=== PATIENT | female | born 1990 | race Caucasian/White ===

== ENCOUNTER → 2020-09-04 06:31 | Outpatient (CLI) | payer BC, SELFPAY ==
[2020-09-04 18:42] LABS: SARS-CoV-2 RNA PCR Negative
== END ==
PROVIDERS: PCP Family Medicine; Visit Provider Family Medicine
DX: Z20.822 Contact with and (suspected) exposure to COVID-19 (principal); J06.9 Acute upper respiratory infection, unspecified
CPT/HCPCS: C9803; U0003; U0005

== ENCOUNTER 2021-07-15 06:52 | Inpatient (IN) | payer OTHER, SELFPAY ==
[2021-07-15] VITALS (214 sets, daily range): BP systolic 80–147; BP diastolic 35–101; PULSE 62–157; TEMP 36.6–37.9; O2SAT 97–100; BMI 41.2
--- OUTSIDE RECORDS SUMMARY | 2021-07-15 07:18 | XMS_ITS | Encounter Summary ---
:1990 Author Care Team Providers Name Role Phone Anders Edwards MD Primary Care Provider [phone] Reason for Visit OB visit Assessment and Plan Assessment Note Patient is ___weeks . Discu ssed plan. 1. Body mass index 40+ - severel y obese 2. Routine care Discussion Note: None recorded.Patient educational handouts: No information available. Plan of Care Reminders Provider Appointments Induction Fabiola T herese 07/19/2021 MD Louise 12:00AM ? Nst Nst, , EQUI P 07/20/2021 10:00AM ? U/S OB BPP Ultras ound Two, 07/20/2021 TECH 9:00AM ? Ob Routine Fabiola Th erese 07/20/2021 MD Louise 9:30AM Lab None ? ? recorded. Referral None ? ? recorded. Procedures None ? ? recorded. Surgeries None ? ? recorded. Imaging None ? ? recorded. Medications Name Start Date ? ? ?
--- OUTSIDE RECORDS SUMMARY | 2021-07-15 07:18 | XMS_ITS | Encounter Summary ---
:1990 Author Care Team Providers Name Role Phone Anders Edwards MD Primary Care Provider [phone] Reason for Visit NST 37.4 Assessment and Plan 1. Maternal obesity complicating , childbirth and the puerperium, antepartum ? non-stress test Discussion Note: None recorded.Patient educational handouts: No [...] recorded. Surgeries None ? ? recorded. Imaging Non-stress [place] Test 07/06/2021 Medications Name Start Date ? ? ?
--- OUTSIDE RECORDS SUMMARY | 2021-07-15 07:18 | XMS_ITS | Encounter Summary ---
:1990 Author Care Team Providers Name Role Phone Anders Edwards MD Primary Care Provider [phone] Reason for Visit OB visit 32w3d Assessment and Plan Assessment Note Patient is ___weeks . Discu ssed plan. Discussion Note: None recorded.Patient educational handouts: No [...] Medications Name Start Date ? ? ? Vitamin B-6 ? Medications Administered None recorded. Vitals
--- OUTSIDE RECORDS SUMMARY | 2021-07-15 07:18 | XMS_ITS | Encounter Summary ---
:1990 Author Care Team Providers Name Role Phone Anders Edwards MD Primary Care Provider [phone] Reason for Visit OB visit Assessment and Plan 1. Maternal obesity complicating , childbirth and the puerperium, antepartum 2. Dilatation of renal pel vis 3. Routine care Discussion Note: None recorded.Patient educational [...]
--- OUTSIDE RECORDS SUMMARY | 2021-07-15 07:18 | XMS_ITS | Encounter Summary ---
:1990 Author Care Team Providers Name Role Phone Anders Edwards MD Primary Care Provider [phone] Reason for Visit None recorded. Assessment and Plan 1. Maternal obesity complicating , childbirth and the puerperium, antepartum ? US, obstetric, biophysical profile + non-stress test Discussion Note: None recorded.Patient educational handouts: No information available. Plan of Care Reminders Provider Appointments Induction Fabiola T herese 07/19/2021 MD Louise 12:00AM ? Nst Nst, , EQUI P 07/20/2021 10:00AM ? U/S OB BPP Ultras ound Two, 07/20/2021 TECH 9:00AM ? Ob Routine Fabiola Th erese 07/20/2021 MD Louise 9:30AM Lab None recorded. ? ? Referral None recorded. ? ? Procedures None recorded. ? ? Surgeries None recorded. ? ? Imaging US, Obstetric, Clarissa burgess Biophysical Profile + 07/13/2021 Non-stress Test Medications Name Start Date ? ?
--- OUTSIDE RECORDS SUMMARY | 2021-07-15 07:18 | XMS_ITS | Encounter Summary ---
:1990 Author Care Team Providers Name Role Phone Anders Edwards MD Primary Care Provider [phone] Reason for Visit None recorded. Assessment and Plan 1. condition affecting obs tetrical care of mother ? US, obstetric, follow-up Discussion Note: None recorded.Patient educational handouts: No [...] recorded. Surgeries None ? ? recorded. Imaging , [place] [facility], Follow-up 05/05/2021 Medications Name Start Date ? ? ? Vitamin B-6 ? Medications Administ
--- OUTSIDE RECORDS SUMMARY | 2021-07-15 07:18 | XMS_ITS | Encounter Summary ---
:1990 Author Care Team Providers Name Role Phone Anders Edwards MD Primary Care Provider [phone] Reason for Visit NST [id number] EDC 07/23/2021 LMP 10/15/2020 Assessment and Plan 1. Maternal obesity complicating [...] ? recorded. Imaging Non-stress [place] Test 06/29/2021 Medications Name Start Date ? ?
--- OUTSIDE RECORDS SUMMARY | 2021-07-15 07:18 | XMS_ITS | Encounter Summary ---
:1990 Author Care Team Providers Name Role Phone Anders Edwards MD Primary Care Provider [phone] Reason for Visit OB visit Assessment and Plan 1. Maternal obesity complicating , childbirth and the puerperium, antepartum 2. Routine care Discussion Note: None recorded.Patient [...] ? Vitamin B-6 ? Medications Administered None re
--- OUTSIDE RECORDS SUMMARY | 2021-07-15 07:18 | XMS_ITS | Encounter Summary ---
:1990 Author Care Team Providers Name Role Phone Anders Edwards MD Primary Care Provider [phone] Reason for Visit OB visit Assessment and Plan 1. Maternal obesity complicating , childbirth and the puerperium, antepartum 2. Disorder of abdominal r egion AC 96% 3. Body mass index 40+ - severel y obese Discussion Note: None recorded.Patient educational handouts: No [...]
--- OUTSIDE RECORDS SUMMARY | 2021-07-15 07:18 | XMS_ITS | Encounter Summary ---
:1990 Author Care Team Providers Name Role Phone Anders Edwards MD Primary Care Provider [phone] Reason for Visit OB visit Assessment and Plan 1. Dilatation of renal pel vis 2. Maternal obesity complicating , childbirth and the puerperium, antepartum Discussion Note: None recorded.Patient educational handouts: No [...]
--- OUTSIDE RECORDS SUMMARY | 2021-07-15 07:18 | XMS_ITS | Encounter Summary ---
:1990 Author Care Team Providers Name Role Phone Anders Edwards MD Primary Care Provider [phone] Reason for Visit None recorded. Assessment and [...] Surgeries None ? ? recorded. Imaging , [place] [facility], Follow-up 05/31/2021 Medications Name Start Date ? ? ? Vitamin B-6 ? Medications Adminis
--- OUTSIDE RECORDS SUMMARY | 2021-07-15 07:18 | XMS_ITS | Encounter Summary ---
:1990 Author Care Team Providers Name Role Phone Anders Edwards MD Primary Care Provider [phone] Reason for Visit None recorded. Assessment and [...] US, Obstetric, Clarissa burgess Biophysical Profile + 06/29/2021 Non-stress Test Medications Name Start Date ? ?
--- OUTSIDE RECORDS SUMMARY | 2021-07-15 07:18 | XMS_ITS | Encounter Summary ---
:1990 Author Care Team Providers Name Role Phone Anders Edwards MD Primary Care Provider [phone] Reason for Visit None recorded. Assessment and Plan 1. Large for gestation age fetus ? US, obstetric, follow-up ? US, obstetric, biophysical profile + non-stress [...] ? ? Imaging US, Obstetric, Clarissa burgess Follow-up 07/06/2021 ? US, Obstetric, Clarissa burgess Biophysical Profile + 07/06/2021
--- OUTSIDE RECORDS SUMMARY | 2021-07-15 07:18 | XMS_ITS | Encounter Summary ---
:1990 Author Care Team Providers Name Role Phone Anders Edwards MD Primary Care Provider [phone] Reason for Visit OB visit Assessment and Plan 1. Maternal obesity complicating , childbirth and the puerperium, antepartum ? HbA1c (hemoglobin A1c), bl ood ? CMP, serum or plasma 2. Disorder of abdominal r egion AC 96% Discussion Note: None recorded.Patient educational handouts: No information available. Plan of Care Reminders Provider Appointments Induction Fabiola T herese 07/19/2021 MD Louise 12:00AM ? Nst Nst, , EQUI P 07/20/2021 10:00AM ? U/S OB BPP Ultras ound Two, 07/20/2021 TECH 9:00AM ? Ob Routine Fabiola Th erese 07/20/2021 MD Louise 9:30AM Lab HbA1C [facility] (Hemoglobin a1C), Blood 06/29/2021 Hospital (Lab) ? CMP, Serum or Lexa tral Tripp Plasma 06/29/2021 Hospital (Lab) Referral None ? ? recorded. Procedures None ? ? recorded. Guzman
--- OUTSIDE RECORDS SUMMARY | 2021-07-15 07:18 | XMS_ITS ---
:1990 Author Care Team Providers Name Role Phone EDY BAJWA MD Primary Care Provider [phone] Allergies Code Code System Name Reaction Severity Status Onset NKDA ? Medications Name Status Start Date Stop Date ? ? amoxicillin 875 mg-potassium clavulanate 125 mg tablet Completed ? 12/14/2020 TAKE 1 TABLET BY MOUTH TWICE DAILY diclofenac 0.1 % eye drops Completed 01/22/201912/14 instill 1 drop by ophthalmic route 4 ti mes every day into affected eye(s) beginning within 15 minutes after surgery ID NOW COVID-19 Test Kit Completed ? USE DIRECTED loratadine 10 mg tablet Completed ? 12/15/19 TAKE 1 TABLET BY MOUTH DAILY metoclopramide 5 mg tablet Completed ? 04/06 TAKE 1 TABLET BY MOUTH FOUR TIMES DAILY DIRECTED Active ? Not available Unisom (diphenhydramine) Completed ? Vitamin B-6 Active ? Not available Problems Name Status Onset Date Source ? SNOMED CT Concept Unknown 01/17/[address] Concept Unknown 01/17/2019 History Body Mass Index 40+ - Severely Obese Active 12/14/2020 ? Active 01/11/2021 ? Maternal Obesity Complicating Active 04/06/2021 ? , Childbirth and the Puerperium, Antepartum Disorder of Abdominal Region Active 06/29/2021 ? Dilatation of Renal Pelvis Active ? ? Procedures Date Name Performed by ?
--- OUTSIDE RECORDS SUMMARY | 2021-07-15 07:18 | XMS_ITS | Encounter Summary ---
:1990 Author Care Team Providers Name Role Phone Anders Edwards MD Primary Care Provider [phone] Reason for Visit None recorded. Assessment and [...] ? recorded. Imaging Non-stress [place] Test 07/13/2021 Medications Name Start Date ? ? ?
--- NOTE | 2021-07-15 08:05 | LDADM ---
This patient, Rosa Dubois, was admitted to Labor/Delivery/Recovery 102 on 07/15/21 at 06:52. Plans for labor, pain management and were discussed with patient. Patient/family oriented to hospital policies and general routines including ID bracelet, bed and alarms, visiting hours, pain management, procedures, bathroom and other care routines, personal items, smoking policy, room service/diet and guest tray routines, infant security routines, and visiting hours. Patient/Family are encouraged to report perceived risks to care and to ask questions if they do not understand what they are told or what they should do. See OBIX for further documentation.
[2021-07-15 08:29] LABS: Basophils Absolute Auto 0.1 K/mm3 (0.0-0.1); Basophils Percent Auto 0.5 % (0.2-1.2); Eosinophils Absolute Auto 0.1 K/mm3 (0-0.3); Hematocrit 35.5 % (37.0-47.0); Immature Granulocyte Absolute 0.29 K/mm3 (0.00-0.031); Immature Granulocyte Percent A 2.6 % (0-0.5); Lymphocytes Absolute Auto 2.15 K/mm3 (0.9-3.2); Lymphocytes Percent Auto 19.4 % (18.3-44.2); Mean Corpuscular HGB Conc 33.8 g/dl (32-36); Mean Corpuscular Hemoglobin 31.8 pg (26-34); Mean Corpuscular Volume 94.2 fl (80-100); Mean Platelet Volume 11.6 fl (7.4-10.4); Monocytes Absolute Auto 0.6 K/mm3 (0.1-0.6); Monocytes Percent Auto 5.4 % (2.6-8.5); Neutrophils Absolute Auto 7.9 K/mm3 (1.3-6.7); Neutrophils Percent Auto 71.1 % (45.5-73.1); Platelet Count Result 239 k/mm3 (150-375); Red Blood Count 3.77 M/mm3 (4.2-5.4); Red Cell Distribution Width 13.6 % (11.5-14.5); White Blood Count 11.1 K/mm3 (4.5-10.0)
[2021-07-15] MEDS: LACTATED RINGERS 1,000 ML 125 ML IV CONT ×4 (08:30→21:48)
[2021-07-15] MEDS: OXYTOCIN 30 UNITS/NS 500 ML 30 UNITS/500 ML BAG 4 UNITS IV CONT (08:31)
--- NOTE | 2021-07-15 08:54 | P.HPUP_ITS ---
History and Physical Update Update Date/Time: 07/15/21 08:54 31-year-old prime at term who presents for spontan eous rupture membranes. Confirmation rupture membranes with arom produced clear fluid. 4-5 cm, 90%, 0 station. Reassuring status. History and Physical has been reviewed, including an updated exam of the patient. There are NO changes in the patient's condition. Risks, benefits, and alternatives have been discussed and questions answered. Patient agrees to proceed with procedure.
[2021-07-15] MEDS: fentaNYL CITRATE INJ (*CRX) 100 MCG/2 ML VIAL IV PUSH ×2 (10:26→11:55)
--- NOTE | 2021-07-15 12:28 | WPDANESEPP ---
Anes - Eval Pre Procedure Procedure: Labor epidural Date/Time: 07/15/21 12:28 Surgeon: Louise Preop Diagnosis: Labor Pain Pre Op Diagnosis: Labor Patient Data Age: 31 Gender: F Height: 1.7 m Weight: 119.5 kg Last Vital Signs Temp 37.1 C 07/15/21 11:30 Pulse 78 07/15/21 12:25 BP 124/65 07/15/21 12:28 Pulse Ox 97 07/15/21 12:28 Allergies Allergy/AdvReac Type Severity Reaction Status Date / Time No Known Allergies Allergy Verified 09/02/20 09:03 Home Medications Medication Instructions Recorded Confirmed Type PNV cmb#95-ferrous fumarate-FA 1 tablet PO DAILY 07/03/21 07/03/21 History [] cholecalciferol (vitamin D3) 50 mcg PO DAILY 07/15/21 07/15/21 History [Vitamin D3] Laboratory Tests 07/15/21 07/15/21 07/15/21 08:06 08:06 08:06 WBC 11.1 K/mm3 H K/mm3 (4.5-10.0) RBC 3.77 M/mm3 L M/mm3 (4.2-5.4) Hgb 12.0 g/dL g/dL (12.0-15.0) Hct 35.5 % L % (37.0-47.0) MCV 94.2 fl fl (80-100) MCH 31.8 pg pg (26-34) MCHC 33.8 g/dl g/dl (32-36) RDW 13.6 % % (11.5-14.5) Plt Count 239 k/mm3 k/mm3 (150-375) MPV 11.6 fl H fl (7.4-10.4) Immature Gran % (Auto) 2.6 % H % (0-0.5) Neut % (Auto) 71.1 % % (45.5-73.1) Lymph % (Auto) 19.4 % % (18.3-44.2) Ida % (Auto) 5.4 % % (2.6-8.5) Eos % (Auto) 1.0 % % (0-4.4) Baso % (Auto) 0.5 % % (0.2-1.2) Lymph # (Auto) 2.15 K/mm3 K/mm3 (0.9-3.2) Ida # (Auto) 0.6 K/mm3 K/mm3 (0.1-0.6) Eos # (Auto) 0.1 K/mm3 K/mm3 (0-0.3) Baso # (Auto) 0.1 K/mm3 K/mm3 (0.0-0.1) Abs Immat Gran (auto) 0.29 K/mm3 H K/mm3 (0.00-0.031) Absolute Neuts (auto) 7.9 K/mm3 H K/mm3 (1.3-6.7) Absolute Nucleated RBC 0.0 K/mm3 K/mm3 (0.0-0.012) Nucleated RBC % 0.0 % % (0.0-0.2) RPR Pending Blood Type B Positive Antibody Screen Negative : gestational age (JANEY 07/22/21) Patient hx anesthesia problems: none Family hx anesthesia problems: none Results Review: All pre-operative results and documents have been reviewed as part of the pre-operative evaluation. [facility] Past Medical History Medical History Plantar fasciitis, bilateral 2013 Surgical History Surgical History History of foot surgery planter 2014 [place] teeth extracted 2012 & 2014 Family History Family History Father Hypertension Mother Hypertension Grandparent Hypertension Diabetes mellitus Father Hypertension Mother Hypertension Social History Social History Smoking packs per day: 0.5 Smoking cigarettes per day: 10.0 Years smoked: 14 Smoking pack-years: 7.00 Smoking status: Former smoker Tobacco type: cigarettes Second hand tobacco smoke exposure: Yes Alcohol intake: current Alcohol use details: 1 beer consumed every other week Substance use: never Substance use type: does not use Gender identity (if verbalized by the patient): Female Spiritual care concerns: No Exam Day of Procedure 07/15/21 12:28 Patient weight: obese Heart: regular rate and rhythm Lungs: normal air movement Airway: Mallampati scale class II Neurological: alert and oriented
--- NOTE | 2021-07-15 17:42 | PM.OBPNVD ---
OB - PN: Subj Subjective Date/time seen: 07/15/21 17:42 Current with reassuring heart tones, cervix is 5 and half. Patient is comfortable with epidural. No evidence of chorio, or distress. OB - PN: Obj Data Labs CBC & Chem 7: 07/15/21 08:06 Labs: Laboratory Results - last 24 hr 07/15/21 07/15/21 08:06 08:06 WBC 11.1 H RBC 3.77 L Hgb 12.0 Hct 35.5 L MCV 94.2 MCH 31.8 MCHC 33.8 RDW 13.6 Plt Count 239 MPV 11.6 H Immature Gran % (Auto) 2.6 H Neut % (Auto) 71.1 Lymph % (Auto) 19.4 [place] % (Auto) 5.4 Eos % (Auto) 1.0 Baso % (Auto) 0.5 Lymph # (Auto) 2.15 [place] # (Auto) 0.6 Eos # (Auto) 0.1 Baso # (Auto) 0.1 Abs Immat Gran (auto) 0.29 H Absolute Neuts (auto) 7.9 H Absolute Nucleated RBC 0.0 Nucleated RBC % 0.0 Blood Type B Positive Antibody Screen Negative OB - PN A/P Time Spent With Patient Time: Total time spent is greater than 50% in coordination of care (as documented) at patient's floor/unit and/or counseling patient:
[2021-07-15] MEDS: ONDANSETRON INJ 4 MG/2 ML VIAL IV PUSH (19:42)
[2021-07-15] MEDS: AMPICILLIN 2 GM/NS 100 ML 2 GM/100 ML BAG IVPB (21:48)
[2021-07-16] VITALS (191 sets, daily range): BP systolic 90–160; BP diastolic 33–113; PULSE 50–160; RESP 16–18; TEMP 36.5–38.1; O2SAT 85–100
[2021-07-16] MEDS: AMPICILLIN 1 GM/NS 50 ML 1 GM/50 ML BAG IVPB ×2 (02:00→06:07)
[2021-07-16] MEDS: LACTATED RINGERS 1,000 ML 125 ML IV CONT (06:08)
[2021-07-16] MEDS: SODIUM CHLORIDE 0.9% IV 100 ML 30 ML (07:20)
[2021-07-16] MEDS: GENTAMICIN 80MG/SOD CHL 50 ML 80 MG/50 ML BAG 100 MG IVPB (07:20)
--- NOTE | 2021-07-16 07:39 | PM.OBPNLAB ---
Pain Control Date/time seen: 07/16/21 07:39 Pain control: epidural Pelvic Exam Dilation (cm): 9 Effacement (%): 90 station: -1 Amniotic membrane status: Ruptured Comments: 9.5cm, anterior lip reduces easily but returns Contractions Contraction intensity: Strong/Firm Status status: Category l Assessment and Plan Pitocin rate (mU/min): 20 Assessment: active labor Comments: Pushed with pt for a few contractions. Great effort, baby -1 station. Anterior lip reduces easily but returns. Will try pushing for a bit. If cervix becomes edematous, will stop. Discussed POC with pt, RN. Amp and gent for fever, prolonged ROM. Baby FHT category 1.
[2021-07-16] MEDS: OXYTOCIN 30 UNITS/NS 500 ML 30 UNITS/500 ML BAG 22 UNITS IV CONT (09:13)
[2021-07-16 09:17] LABS: Estimated CRCL calculation 185 ml/min; Estimated Glomerular Filt Rate > 60
--- NOTE | 2021-07-16 10:37 | P.PCNOB_ITS ---
OB - Delivery Note Procedure Delivery date: 07/16/21 Procedure: Intrapartal Events: Chorioamnionitis Delivery augmentation: Pitocin Delivery monitor: External FHT and Internal Uterine Route of delivery: Episiotomy description: Right Mediolateral Delivery repair: vicryl Quantitative Blood Loss (ml): 285 Anesthesia type: Epidural Disposition: Floor Narrative: FHT dropped to the 50s for one minute, so RML episiotomy was cut. With adequate expulsive efforts by the mother, the baby's head was delivered OA. A mild shoulder dystocia was encountered and relieved with McRobert's and suprapubic pressure. The baby's anterior shoulder was delivered under the pubic symphysis. The posterior shoulder and the rest of the baby delivered without difficulty. The infant was placed on the mothers chest and suctioned and st imulated. The cord was clamped and cut after 30 seconds. Mother and baby both stable. [place] Baby Date of : 07/16/21 Time of : 10:12 Weeks of gestation at delivery: 38 Infant gender: Male Weight (pounds): 7 Weight (ounces): 15 presentation: vertex position: Right Occiput Anterior Placenta delivery description: Spontaneous Cord Vessel Description: 3 Vessels and Clamped/Cut score one minute: 8 score five minutes: 9
[2021-07-16] MEDS: OXYTOCIN 30 UNITS/NS 500 ML 30 UNITS/500 ML BAG 125 UNITS IV CONT (11:00)
[2021-07-16 11:29] LABS: Rapid Plasma Reagin Non-Reactive (NonReactive)
[2021-07-16] MEDS: IBUPROFEN 600 MG TABLET PO ×2 (12:45→18:46)
[2021-07-16] MEDS: WITCH HAZEL 40 PADS 1 PAD TOPICAL (12:45)
[2021-07-16] MEDS: BENZOCAINE 20% AER SPR (*SP) 56 GM CAN 1 SPRAY TOPICAL (12:45)
--- NOTE | 2021-07-16 13:05 | PC.NURSE ---
Patient transferred to post room #277 per wheelchair from labor and delivery. Support person present. Oriented to unit, room, information board, rooming in, admission packet and security measures. Patient verbalizes understanding.
[2021-07-16] MEDS: ACETAMINOPHEN 325 MG TABLET 650 MG PO (21:03)
[2021-07-17] VITALS: BP 119/61; PULSE 84; RESP 16; TEMP 36.7; O2SAT 97
[2021-07-17] MEDS: IBUPROFEN 600 MG TABLET PO ×2 (00:33→09:09)
[2021-07-17 04:00] VITALS: BP 121/73; PULSE 68; RESP 14; TEMP 36.5; O2SAT 96
[2021-07-17 05:07] LABS: Hematocrit 30.6 % (37.0-47.0); Hemoglobin 9.8 g/dL (12.0-15.0)
--- NOTE | 2021-07-17 06:55 | PM.OBPNVD ---
OB - PN: Subj Subjective Date/time seen: 07/17/21 06:55 Patient comments: no complaints baby status: doing well OB - PN: Obj Data Labs CBC & Chem 7: 07/17/21 04:15 07/15/21 08:05 Labs: Laboratory Results - last 24 hr 07/15/21 07/15/21 07/17/21 08:05 08:06 04:15 Hgb 9.8 L Hct 30.6 L Creatinine 0.50 L Estim Creat Clear Calc 185 Estimated GFR > 60 RPR Non-reactive OB - PN A/P Plan day: 1 Plan: routine care Time Spent With Patient Time: Total time spent is greater than 50% in coordination of care (as documented) at patient's floor/unit and/or counseling patient: Review of Systems Review of Systems: All systems reviewed & are unremarkable except as noted in HPI and below Exam Const: General: cooperative, healthy appearing and comfortable
--- NOTE | 2021-07-17 07:00 | PC.NURSE ---
PT introductions made and plan of care discussed per post , pain management, breast feeding, daily care activities. PT verbalized understanding of such care. PT and spouse both recipients of instructions and no barriers to learning identified at this time. PT received instructions per one to one discussion, mom baby care guide and demonstrations this shift.
[2021-07-17] MEDS: BENZOCAINE 20% AER SPR (*SP) 56 GM CAN 1 SPRAY TOPICAL (09:08)
[2021-07-17] MEDS: WITCH HAZEL 40 PADS 1 PAD TOPICAL (09:08)
[2021-07-17] MEDS: ACETAMINOPHEN 325 MG TABLET 650 MG PO (09:10)
[2021-07-17] MEDS: DOCUSATE SODIUM 100 MG CAPSULE PO ×2 (09:11→18:00)
[2021-07-17] MEDS: POLYSACCHARIDE IRON COMPLEX 150 MG CAPSULE PO ×2 (09:11→18:00)
[2021-07-17 09:15] VITALS: BP 124/70; PULSE 78; RESP 18; TEMP 36.3; O2SAT 99
--- NOTE | 2021-07-17 12:34 | WPDANLDPN2 ---
Anes-Prog Note L&D Date/Time: 07/17/21 12:34 Comfortable throughout: labor and delivery Neuraxial method: epidural Epidural/Spinal procedure site: clean & non-tender Neuro status: Neuro function grossly intact. Cardiovascular status: normal Respiratory status: normal Airway patency: baseline Mental status: baseline Post-Op hydration status: normal Vital Signs: Last Vital Signs Temp 36.3 C L 07/17/21 09:15 Pulse 78 07/17/21 09:15 Resp 18 07/17/21 09:15 BP 124/70 07/17/21 09:15 Pulse Ox 99 07/17/21 09:15 Pain score (VAS): 05/10 I/O: Intake & Output 07/16/21 07/17/21 07/17/21 23:59 07:59 15:59 Intake Total 500 240 Balance 500 240 Post-procedural complaints: none Patient feedback: Patient satisfied with anesthetic care.
[2021-07-17 21:20] VITALS: BP 130/75; PULSE 68; RESP 16; TEMP 37.2; O2SAT 98
--- NOTE | 2021-07-18 00:30 | PC.NURSE ---
Patient viewed the discharge video Mother & Baby Care, The First Two Weeks . Patient was given the opportunity and encouraged to ask questions. Patient verbalized understanding of information shared and has been given the mother/baby guide for home reference.
--- NOTE | 2021-07-18 08:00 | PC.NURSE ---
PT introductions made and plan of care discussed per post , pain management, breast feeding, daily care activities and pending discharge to home. PT verbalized understanding of such care. PT and spouse both recipients of instructions and no barriers to learning identified at this time. PT received instructions per one to one discussion, mom baby care guide and demonstrations this shift.
--- NOTE | 2021-07-18 08:36 | PM.OBPNVD ---
OB - PN: Subj Subjective Date/time seen: 07/18/21 08:36 Patient comments: no complaints baby status: doing well OB - PN: Obj Data Labs CBC & Chem 7: 07/17/21 04:15 07/15/21 08:05 OB - PN A/P Plan day: 2 Plan: routine care and discharge home Time Spent With Patient Time: Total time spent is greater than 50% in coordination of care (as documented) at patient's floor/unit and/or counseling patient: Review of Systems Review of Systems: All systems reviewed & are unremarkable except as noted in HPI and below Exam Const: General: cooperative, healthy appearing and comfortable
--- NOTE | 2021-07-18 08:37 | PM.OBDSVD ---
DS: Admitting Diagnosis Discharge Date 07/18/21 Admitting Diagnosis IOL OB - DS: Summary OB Procedures : None OB Procedures Intrapartum: Spontaneous Vag Delivery OB Procedures: : None Time Spent with Patient Time attestation: Total time spent providing and/or coordinating discharge services: DS: Data Data Completed and Pending Labs on day of discharge: Preliminary micro results at discharge 07/16/21 13:48 Anaerobic Culture - Preliminary Placenta 07/16/21 13:48 Anaerobic Culture - Preliminary Placenta Maternal Discharge Plan Discharge Attending physician on discharge: Nakul Conti Discharging Clinician: Carol Staley Patient Disposition: Home, Self-Care Activity: pelvic rest Diet: regular Discharge Instructions: Education: Mom and Baby Guide Given to: Mother Follow-Up: Call your delivering provider's office for an appointment to be seen in: 4 Weeks Mom and baby should come to the [facility] for the follow-up appointment. Appointment Date/Time: July 20, 2021 at 9:00 am What to expect at your follow-up visit: Blood Pressure Check Call [phone] if you are unable to keep your appointment time. BREAST CARE: * Wear a snug supportive bra. * For engorgement discomfort: Breast Feeding: * Apply warm moist washcloths * Express milk as needed to relieve engorgement * Wear loose clothing Bottle Feeding: * May apply ice packs * For sore nipples: * Identify correct latch-on * Apply warm moist washcloths before and after nursing * Air dry nipples after nursing * May apply Lansinoh cream to nipples PERINEAL CARE: * Until bleeding stops, use your justin bottle after urinating * Change your pad frequently throughout the day * You may take sitz baths several times a day (fill your bathtub with warm water and soak for 20 minutes.) Do NOT bathe in the water * No tub baths until seen by your physician - You may shower ACTIVITY: * Rest as much as possible. * Do not exercise or lift anything heavier than your baby (such as laundry or other children.) * Avoid stairs or driving as much as possible. * Do not put anything into the vagina. No douching, tampons, or sexual activity until seen by physician. NOTIFY PHYSICIAN IF YOU HAVE ANY QUESTIONS OR IF ANY OF THE FOLLOWING SYMPTOMS OCCUR: * If your perineum becomes red, swollen, or more painful than what you have experienced in the hospital. * If your vaginal bleeding becomes foul smelling. * If your vaginal bleeding becomes more heavy than a period or if your bleeding changes from pink to bright red. However, you may pass an occasional walnut-sized clot once or twice for the first week . * If you experience a sharp, shooting pain in you calves. * If you discover a hard, reddened area on your breast or if you experience flu-like symptoms. * If you have a fever of 100.4 or greater DIET: * Eat regular, well-balanced meals. * Drink plenty of fluids daily. If , drink to thirst. Patient Instructions: Antibiotic Form Stand Alone Forms: General Discharge Information Follow-up/Referrals: Fabiola Gil MD [Physician] - 4 Weeks Discharge Medications: Continued PNV cmb#95-ferrous fumarate-FA [] 28 mg iron- 800 mcg Tablet 1 tablet PO DAILY RF: 0 cholecalciferol (vitamin D3) [Vitamin D3] 50 mcg (2,000 unit) Tablet 50 mcg PO DAILY RF: 0 Date of admission: 07/15/21 06:52 Primary Care Provider: Rosy Edwards Admitting Provider: Fabiola Gil Attending physician on admission: Fabiola Gil Condition: Stable
[2021-07-18 09:00] VITALS: BP 124/76; PULSE 72; RESP 18; TEMP 36.8; O2SAT 100
[2021-07-18] MEDS: POLYSACCHARIDE IRON COMPLEX 150 MG CAPSULE PO (09:00)
[2021-07-18] MEDS: DOCUSATE SODIUM 100 MG CAPSULE PO (09:00)
--- NOTE | 2021-07-18 10:00 | PC.NURSE ---
PT received discharge instructions per protocol and verbalized understanding of such care.
--- NOTE | 2021-07-18 10:25 | PC.NURSE ---
PT discharged to home ambulatory accompanied by spouse and and taken to waiting car. follow up appts confirmed
[2021-07-20 08:46] VITALS: BP 130/77; PULSE 71; RESP 20; TEMP 36.9; O2SAT 100
== END 2021-07-18 10:25 | disposition home or self-care (01) | DRG 805 ==
LOC: ANHLDR 07:15 → ANHOB2 07-16 13:27
PROVIDERS: Admitting Provider Obstetrics & Gynecology; PCP Family Medicine; Visit Provider Obstetrics & Gynecology
DX: O42.92 Full-term premature rupture of membranes, unspecified as to length of time between rupture and onset of labor (principal); O41.1230 Chorioamnionitis, third trimester, not applicable or unspecified; Z37.0 Single live birth; O66.0 Obstructed labor due to shoulder dystocia; Z3A.39 39 weeks gestation of pregnancy; O36.8330 Maternal care for abnormalities of the fetal heart rate or rhythm, third trimester, not applicable or unspecified
CPT/HCPCS: 36415; 82565; 84112; 85014; 85018; 85025; 86592; 86850; 86900; 86901; 87070; 87075; 87077; 87186; 87205; A9270; J0131; J0290; J1580; J2405; J2590; J2795; J3010; J7120

== ENCOUNTER 2021-10-02 17:58 | Emergency (ER) | payer OTHER, SELFPAY ==
[2021-10-02 18:07] VITALS: BP 134/96; PULSE 127; RESP 20; TEMP 39.2
--- NOTE | 2021-10-02 18:15 | ED.URI ---
HPI - URI/Sore Throat General Chief Complaint: Upper Respiratory Infection Stated Complaint: Fever,Body Aches,Cough Time Seen by Provider: 10/02/21 18:15 Source: patient Mode of arrival: ambulatory Limitations: no limitations History of Present Illness HPI Narrative: Rosa Dubois is a 31 yo female with no PMH [facility] 3 days of fever dry cough and sore throat. Her fever got as high as 103 today today triage is 102.5. She has been able to drink fluids and has been taking Tylenol. She is currently breast-feeding her infant was born in June Related Data Home Medications Medication Instructions Recorded Confirmed vit no.95-ferrous 1 tablet PO DAILY 07/03/21 10/02/21 fumarate 28 mg-folic acid 800 mcg tablet () cholecalciferol (vitamin D3) 50 50 mcg PO DAILY 07/15/21 10/02/21 mcg (2,000 unit) tablet (Vitamin D3) levonorgestrel 20 mcg/24 hours (7 See Rx Instructions .Route .COMPLEX 10/02/21 10/02/21 yrs) 52 mg intrauterine device (Mirena) Allergies Allergy/AdvReac Type Severity Reaction Status Date / Time No Known Allergies Allergy Verified 10/02/21 18:01 Review of Systems Review of Systems: CONSTITUTIONAL: Has fever, chills, sweats. EYES: Denies visual changes, redness, discharge. ENT: Denies rhinorrhea, congestion, has sore throat, otalgia. CARDIOVASCULAR: Denies chest pain, palpitations, edema. RESPIRATORY: Denies dyspnea, wheezing, has cough GASTROINTESTINAL: Denies abdominal pain, nausea, vomiting, diarrhea. GENITOURINARY: Denies dysuria, hematuria, abnormal discharge SKIN: Denies rash or itching. NEUROLOGIC: Denies numbness, or focal weakness. PSYCHIATRIC: Denies anxiety or depression. [facility] Past Medical History Medical History (Updated 10/02/21 @ 19:18 by Kirstie Hicks CNP) Plantar fasciitis, bilateral 2013 Surgical History Surgical History History of foot surgery planter 2014 [place] teeth extracted 2012 & 2014 Family History Family History Father Hypertension Mother Hypertension Grandparent Hypertension Diabetes mellitus Father Hypertension Mother Hypertension Social History Social History Smoking packs per day: 0.5 Smoking cigarettes per day: 10.0 Years smoked: 14 Smoking pack-years: 7.00 Smoking status: Former smoker Tobacco type: cigarettes Second hand tobacco smoke exposure: Yes Alcohol intake: current Alcohol use details: 1 beer consumed every other week Substance use: never Substance use type: does not use Gender identity (if verbalized by the patient): Female Spiritual care concerns: No Comments At time of signature, I agree with nursing past medical, surgical, social and family history. There is no relevant family history pertinent to the presenting complaint. Exam Narrative: GENERAL: This is a well-nourished, well-developed patient, in mild distress. HEAD: normocephalic, atraumatic. EYES: Sclera clear/white. Vision is grossly intact. EARS: External ears normal, auditory canals erythema and without drainage, TMs normal without perforation. Hearing grossly intact. NOSE: External nose normal with nasal discharge, nares with redness, has rhinorrhea. THROAT: Mucous membranes moist, posterior pharynx erythema with tonsillar edema, 2+ NECK: Neck supple, mild tender CARDIOVASCULAR:Tachycardia rate and rhythm without murmurs, gallops, or rubs. RESPIRATORY: Clear to auscultation. Breath sounds equal bilaterally. No wheezes, rales, or rhonchi. GASTROINTESTINAL: Abdomen soft, non-tender, SKIN: warm, intact with no suspicious lesions or rash, good texture and turgor. NEURO: awake, alert, and oriented to person, place and time. There were no obvious focal neurologic abnormalities. Steady gait EXTREMITIES: Normal
== END 2021-10-02 19:18 | disposition home or self-care (01) ==
PROVIDERS: Emergency Provider Nurse Practitioner; PCP Family Medicine
DX: J02.0 Streptococcal pharyngitis (principal); Z20.822 Contact with and (suspected) exposure to COVID-19; Z87.891 Personal history of nicotine dependence
CPT/HCPCS: 87081; 87420; 87426; 87804; 87880; 99213; C9803; G0463

== ENCOUNTER 2023-02-23 19:11 | Emergency (ER) | payer BC, SELFPAY ==
--- NOTE | ~2023-02-23 | XR_ITS ---
EXAMINATION: XR knee LT 3V DATE: 02/23/2023 19:28 INDICATION: Anterior knee pain TECHNIQUE: Three views of the left knee were obtained. COMPARISON: None. FINDINGS: Alignment is normal. No fracture or osteochondral lesion. Joint spaces are normal with no e rosions. No joint effusion/synovitis. Soft tissues are unremarkable. IMPRESSION: 1. No acute osseous abnormality. Reviewed, dictated and finalized at location F.
--- NOTE | 2023-02-23 19:26 | ED.LOWEXIN ---
HPI - Extremity Injury (Lower) General Chief Complaint: Extremity Injury, Lower Stated Complaint: Lt Knee Pain Due to Fall Time Seen by Provider: 02/23/23 19:26 Source: patient and RN notes reviewed Mode of arrival: ambulatory (With crutches) Limitations: no limitations History of Present Illness HPI Narrative: Patient presents today stating that her left patella has laterally dislocated twice in the last 30 minutes while she was playing kickball and reduced back to normal position on its own when she put weight on her foot. She has been using crutches after the injury. Currently rates her pain 5/10 at rest, which increases to 10/10 with weight-bearing. She applied ice for short period of time. Denies numbness or tingling. Related Data Home Medications Medication Instructions Recorded Confirmed levonorgestrel 21 mcg/24 hours (8 See Rx Instructions .Route .COMPLEX 10/02/21 06/28/22 yrs) 52 mg intrauterine device (Mirena) Allergies Allergy/AdvReac Type Severity Reaction Status Date / Time No Known Allergies Allergy Verified 05/24/22 16:05 Review of Systems Review of Systems: CONSTITUTIONAL: Denies body aches, fever, chills, or sweats. EYES: Denies visual changes, redness, or discharge. ENT: Denies rhinorrhea, congestion, sore throat, or otalgia. CARDIOVASCULAR: Denies chest pain, palpitations, or edema. RESPIRATORY: Denies cough or dyspnea. GASTROINTESTINAL: Denies abdominal pain, nausea, vomiting, or diarrhea. GENITOURINARY: Denies dysuria or hematuria. SKIN: Denies rash, itching, or wounds. MUSCULOSKELETAL: Denies back pain, or myalgia.+ left knee pain NEUROLOGIC: Denies headache, numbness, tingling, or weakness. PSYCH: Denies depression or anxiety. [facility] Past Medical History Medical History Plantar fasciitis, bilateral 2013 Surgical History Surgical History History of foot surgery b/l yane 2013 (normal spontaneous vaginal delivery) (~06/2021) [place] teeth extracted 2012 & 2014 Family History Family History Father Hypertension Mother Hypertension Grandparent Hypertension Diabetes mellitus Father Hypertension Mother Hypertension Social History Social History Smoking packs per day: 0.5 Smoking cigarettes per day: 10.0 Years smoked: 14 Smoking pack-years: 7.00 Smoking status: Current every day smoker Tobacco type: cigarettes Second hand tobacco smoke exposure: Yes Alcohol intake: current Alcohol use details: 1 beer consumed every other week Substance use: never Substance use type: does not use Lack of Transportation: No Lack of Food: Never True Current Housing: I Have Housing Concerned About Future Housing: No Difficulty Paying Gas/Electric Bills: No Difficulty Paying for Meds: No Currently Unemployed: No Education: High School Diploma/GED Difficulty w/ Childcare or Family Care: No Gender identity (if verbalized by the patient): Female Spiritual care concerns: No Comments At time of signature, I have reviewed and agree with nursing past medical, surgical, social and family history unless otherwise noted. Please see nursing chart for further information. There is no relevant family history pertinent to the presenting complaint Exam Narrative: GENERAL: Well-appearing, well-nourished, and in no acute distress. HEAD: Normocephalic, atraumatic. EYES: EOMI. No redness or drainage. Conjunctivae normal. ENT: Mucous membranes pink and moist. NECK: Normal AROM. CHEST: No respiratory distress. EXTREMITIES: Left knee: Tenderness to the lateral joint line with mild edema to the knee. Patella is located in its normal anatomical position and is nontender to palpation. Pain with rang
[2023-02-23 19:28] VITALS: BP 134/83; PULSE 118; RESP 16; TEMP 37.1; O2SAT 99
== END 2023-02-23 19:52 | disposition home or self-care (01) ==
PROVIDERS: Emergency Provider Nurse Practitioner; PCP Family Medicine
DX: M25.562 Pain in left knee (principal); S89.92XA Unspecified injury of left lower leg, initial encounter; X58.XXXA Exposure to other specified factors, initial encounter; F17.210 Nicotine dependence, cigarettes, uncomplicated
CPT/HCPCS: 73562; 99213; G0463; L1830

== ENCOUNTER 2024-12-29 15:37 | Emergency (ER) | payer BC, SELFPAY ==
--- OUTSIDE RECORDS SUMMARY | 2017-07-14 09:30 | XMS_ITS | Continuity of Care Document ---
Author Organization [facility] Address [address] [place] [address] Phone Care Team Providers Care Block Tester Name Role Phone Colton Zaidi PT Unavailable Unavailable Procedures Procedure Date Screening Advance Directives Directive Yes / No Effective Date File Name No Information Encounters Encounter Description Practice Location Reason(s) For Visit Diagnoses Date Provider Providers Copied on Encounter [facility], [address], [place], [place], [id number], tel:[phone] [place] No Information Dyan Segura. . Referring Provider: Physician Screen. Family History Family Member Type Diagnosis Age At Onset No Information Payers Payer name Insurance type Covered republican ID Authoriza tion(s) No Information Social History Type Description Quantity Date Captured Comments Sex Female Smoking Status No Information Chief Complaint And Reason For Visit No Information Reason For Referral Reason For Referral No Information History Of Present Illness Encounter Date Complaint History Of Prese nt Illness No Information Functional Status Date Functional Assessmen t No Information Instructions Date Instruction Additional Infor mation No Information Assessments Type Assessment Date No Information Patient Care Teams Name Effective Dates (start - stop) Status Members No Information
--- OUTSIDE RECORDS SUMMARY | 2023-04-19 11:45 | XMS_ITS | Continuity of Care Document ---
Author Organization [facility] Address [address] [place] [address] Phone Care Team Providers Care Ops Analyst Name Role Phone Erwin Vicente PT Unavailable Unavailable Procedures Procedure Date Therapeutic Activities Therapeutic Exercise Neuromuscular Re-Ed Therapeutic Activities Neuromuscular Re-Ed Therapeutic Exercise Therapeutic Activities Therapeutic Exercise Neuromuscular Re-Ed Therapeutic Activities Therapeutic Exercise Neuromuscular Re-Ed Therapeutic Activities Neuromuscular Re-Ed Therapeutic Exercise PT Evaluation Low Complexity Therapeutic Activities Neuromuscular Re-Ed Therapeutic Exercise Therapeutic Exercise Neuromuscular Re-Ed Therapeutic Activities PT Re-evaluation Manual Therapy Therapeutic Activities Manual Therapy Therapeutic Exercise Neuromuscular Re-Ed PT Evaluation Low Complexity Manual Therapy Therapeutic Exercise Therapeutic Activities Advance Directives Directive Yes / No Effective Date File Name No Information Encounters Encounter Description Practice Location Reason(s) For Visit Diagnoses Date Provider Providers Copied on Encounter [facility], [address], [place], [place], [id number], [place] tel:[phone] [place] No Information Jules Erwin. . Referring Provider: Adonis Little, [address] [place] [address] [address], [place], [address]. [facility], [address], [place], [place], [id number], [place] tel:[phone] [place] No Information Jules Erwin. . Referring Provider: Adonis Little, [address] [place] [address] [address], [place], [address]. [facility], [address], [place], [place], [id number], tel:[phone] [place] No Information Jules Erwin. . Referring Provider: Adonis Little, [address] [place] [address] [address], [place], [address]. [facility], [address], [place], [place], [id number], [place] tel:[phone] [place] No Information Jules Erwin. . Referring Provider: Adonis Little, [address] [place] [address] [address], [place], [address]. [facility], [address], [place], [place], [id number], [place] tel:[phone] [place] No Information Jules Erwin. . Referring Provider: Adonis Little, [address] [place] [address] [address], [place], [address]. [facility], [address], [place], [place], [id number], [place] tel:[phone] [place] No Information Jules Erwin. . Referring Provider: Adonis Little, [address] [place] [address] [address], [place], [address]. [facility], [address], [place], [place], [id number], [place] tel:[phone] Yohannes No Information Monica Renee. . [facility], [place], [place], [id number], [place] tel:[phone] Yohannes No Information Anderson Thelma. . [facility], [place], [place], [id number], [place] tel:[phone] Yohannes No Information Anderson Thelma. . Family History Family Member Type Diagnosis Age At Onset No Information Payers Payer name Insurance type Covered alliance party ID Authorjadlele cahvez(s) [facility] [id number] Social History Type Description Quantity Date Captured Comments Sex Female Smoking Status No Information Chief Complaint And Reason For Visit No Information Reason For Referral Reason For Referral No Information Plan Of Treatment Date Type Action Status Goal Tobacco Cessation Counseling completed Goal Tobacco cessation counseling completed Goal Tobacco Cessation Counseling completed Goal Tobacco cessation counseling completed Referral Ordered: PCP timeframe: 1 week. (related to Overweight) ordered Referral Ordered: Weight management: Referral to physician timeframe: 1 Month. (related to Overweight) ordered History Of Present Illness Encounter Date Complaint History Of Prese nt Illness No Information Functional Status Date Functional Assessmen t No Information Instructions Date Instruction Additional Infor deena Dietary needs education Related to Overweight Prescribed activity/exercise edu cation Related to Overweight Assessments Type Assessment Date No Information Patient Care Teams Name Effective Dates (start - stop) Status Members No Information
--- OUTSIDE RECORDS SUMMARY | 2024-06-11 03:15 | XMS_ITS ---
Author Organization [facility] Address [address] [facility] [address] [place], [place] [address] Care Team Providers Care Software Applications Engineer Name Role Phone Juan Manuel Johnston Unavailable [phone] REASON FOR VISIT Patient is seen for [...] 18 MG/3ML Subcutaneous 11/12/2022 Active Vital Signs Weight 203 lbs 06/11/2024 Weight-kg 92.08 kg 06/11/2024 Height 67.00 in 06/11/2024 Height-cm 170.18 cm 06/11/2024 BMI 31.79 kg/m2 06/11/2024 Encounters Encounter Location Date Provider Diagnosis [address] [id number] 06/11/2024 Juan Manuel Johnston Body mass index [...] * Rosa DENNYDOB: [birth year] (34 yo F)Acc No.[id number]:06/11/2024 Patient: Rosa MARINO Provider: Harsh Johnston M.D :1990 A ge:34 Y S ex:Female Date:06/11/2024 Address:[address] [place] [address] Subjective: * Chief Complaints: * 1 . [...] Electronic signature of Alba Johnston MD on 12/29/2024 at 03:42 PM CDT Sign off status: Pending * Provider: Harsh Johnston M.D Date: 06/11/2024 Generated for Randall yao/Gareth/Maxim on: 0 12/29/2024 03:42 PM CDT History and Physical Notes * [...]
--- OUTSIDE RECORDS SUMMARY | 2024-08-13 05:00 | XMS_ITS ---
Author Organization [facility] Address [address] [facility] [address] [place], [place] [address] Care Team Providers Care Radiation Control Specialist Name Role Phone Juan Manuel Johnston Unavailable [phone] REASON FOR VISIT Patient is seen for [...] Duration: 30 days 04/11/2024 Active Vital Signs Weight 202 lbs 08/13/2024 Weight-kg 91.63 kg 08/13/2024 Height 67.00 in 08/13/2024 Height-cm 170.18 cm 08/13/2024 BMI 31.63 kg/m2 08/13/2024 Encounters Encounter Location Date Provider Diagnosis [address] [id number] 08/13/2024 Juan Manuel Johnston Body mass index [...] * Rosa DUBOISDOB: [birth year] (34 yo F)Acc No.[id number]:08/13/2024 Patient: Rosa MARINO Provider: Harsh Johnston M.D :1990 A ge:34 Y S ex:Female Date:08/13/2024 Address:[address] [place] [address] Subjective: * Chief Complaints: * 1 . [...] of Alba Johnston MD on 12/29/2024 at 03:40 PM CDT Sign off status: Pending * Provider: Harsh Johnston M.D Date: 0 08/13/2024 Generated for Printi ng/Faxing/eTransmitting on: 0 12/29/2024 03:40 PM CDT History and Physical Notes * [...]
--- OUTSIDE RECORDS SUMMARY | 2024-09-12 04:30 | XMS_ITS ---
Author Organization [facility] Address [address] [place] [phone] Care Team Providers Care Soda Fountain Clerk Name Role Phone Kimireese Juan Manuel Bolden [phone] Encounters Encounter Location Date Provider Diagnosis [address] [id number] 09/12/2024 Juan Manuel Johnston Plan Of Treatment No Information Progress Notes * ALINEKEITHRosa PENALOZADOB: [birth year] (34 yo F)Acc No.[id number]:09/12/2024 Patient: Rosa MARINO Provider: Harsh Johnston M.D :1990 A ge:34 Y S ex:Female Date:09/12/2024 Address:[address] [place], [place] [phone] Subjective: * Chief Complaints: * * Medical History: Objective: * Vitals: Assessment: Plan: * Treatment: * Billing Information: * Visit Code: * Procedure Codes: * Electronic signature of Alba Johnston MD on 12/29/2024 at 03:42 PM CDT Sign off status: Pending * Provider: Harsh Johnston M.D Date: 09/12/2024 Generated for Randall yao/Gareth/eTransmitting on: 0 12/29/2024 03:42 PM CDT
--- OUTSIDE RECORDS SUMMARY | 2024-12-29 15:40 | XMS_ITS | Clinical Summary ---
Author Organization [facility] Address [address] [place] [address] Care Team Providers Care Assembler Chassis Name Role Phone Unavailable Primary Care Provider Unavailabl e Source Comments [facility],non-owned Affiliates and Associated Physician Practices is amultiple site organization consisting of ambulatory clinics and hospital sitesin [place], [place]. This disclosure is being madepursuant to the Care Everywhere program and may not contain all information available regarding this patient. Last updated 18.[facility] Allergies No known active allergies Active Problems Problem Noted Date Diagnosed Date Ultrasound recheck of pyelectasis, antepar juventino 06/16/2021 Overview (06/16/2021): Persistent bilateral pyelectasis on outside scan. 05/31/21 @ 33w4d scan : R= 5.2mm; L= 5.1mm ; growth 66.2% overall. Encounter for supervision of normal first pregna ncy 06/16/2021 Overview (06/16/2021): lab summary: B+, Negative, Immune, Rpr-NR, Hbsag-NR, HIV-Neg H/h/p: 13.0 / 40.4 / 263 NIPT: Low Risk/ Male Social History Tobacco Use Types Packs/Day Years Used Date Smoking Tobacco: Every Day Comments No Sex and Gender Information Value Date Recorded Sex Assigned at Not on file Legal Sex Female 4:05 PM REPA[employer]ER [employer] Gender Identity Not on file Sexual Orientation Not on file Plan of Treatment Health Maintenance Due Date Last Done Comments HEPATITIS C SCREENING 02/14/2010 DTAP/TDAP/TD VACCINES (1 - Tdap) 02/18/2011 HEPATITIS B VACCINE (1 of 3 - 19+ 3-dose series) 02/18/2011 HPV VACCINE (1 - 3-dose SCDM series) 02/18/2019 COVID-19 VACCINE (3 - 2023-2 5 season) 2023 07/22/2020, 06/27/2020 DEPRESSION SCREENING 05/01/2024 INFLUENZA VACCINE (#1) 2024 ZOSTER VACCINE (1 of 2) 02/18/2042 HIV SCREENING Completed 05/17/2021 HIB VACCINE Aged Out No longer eligi ble based on patient's age to complete this topic MENINGOCOCCAL (Group B) VACCINE SHARED DECISION-MAKING Aged Out No longer eligible based on patient's age to complete this topic MENINGOCOCCAL GROUPS A/C/Y/W VACCINE Aged Out No longer eligible b ased on patient's age to complete this topic PNEUMOCOCCAL VACCINE Aged Out No long er eligible based on patient's age to complete this topic Insurance
--- OUTSIDE RECORDS SUMMARY | 2024-12-29 15:41 | XMS_ITS | Patient Health Record ---
Author Organization [employer] [facility] [employer] [facility] [employer] Address [address] [place], [place] [phone] Care Team Providers Care Wealth Management Advisor Name Role Phone Juan Manuel Johnston [phone] Reason For Referral No Information Medications Medication SIG (Take, Route, Fr equency, Duration) Notes Start Date End Date Status [...] 11/12/2022 Active metFORMIN HCl ER 500 MG 1 tablet with ev ening meal Orally Once a day; Duration: 30 days 12/19/2023 Active Problems Problem Type SNOMED Code ICD Code Onset Dates Problem Status W/U Status Risk Notes Problem Information temporarily unavailable Obesity, unspecified (E66.9) Active confirmed Problem Information temporarily unavailable Generalized anxiety disorder (F41.1) Active confirmed Problem Information temporarily unavailable Body mass index [BMI] 40.0-44.9, adult (Z68.41) 1 Active confirmed Problem Information temporarily unavailable Obesity due to excess calories with serious comorbidity, unspecified classification (E66.09) Active confirmed Problem Information temporarily unavailable Insulin resistance (E88.819) Active confirmed Problem Information temporarily unavailable Vitamin D deficiency, unspecified (E55.9) 3 Active confirmed Vital Signs Height-cm 170.18 cm 08/13/2024 Weight-kg 91.63 kg 08/13/2024 Height 67.00 in 08/13/2024 Weight 202 lbs 08/13/2024 BMI 31.63 kg/m2 08/13/2024 Encounters Encounter Location Date Provider Diagnosis [address] [id number] 01/18/2024 Juan Manuel Johnston Body mass index [BMI ] 40.0-44.9, adult Z68.41 ; Obesity, unspecified E66.9 ; Dietary counseling and surveillance Z71.3 ; Vitamin D deficiency, unspecified E55.9 ; Obesity due to excess calories with serious comorbidity, unspecified classification E66.09 ; Insulin resistance E88.819 and Generalized anxiety disorder F41.1 [facility]. [address] [place] [id number] 02/15/2024 Juan Manuel Johnston Body mass index [BMI ] 40.0-44.9, adult Z68.41 ; Obesity, unspecified E66.9 ; Dietary counseling and surveillance Z71.3 ; Vitamin D deficiency, unspecified E55.9 ; Obesity due to excess calories with serious comorbidity, unspecified classification E66.09 ; Insulin resistance E88.819 and Generalized anxiety disorder F41.1 [facility]. [address] [place] [address] [id number] 03/11/2024 Juan Manuel Johnston Body mass index [BMI ] 40.0-44.9, adult Z68.41 ; Obesity, unspecified E66.9 ; Dietary counseling and surveillance Z71.3 ; Vitamin D deficiency, unspecified E55.9 ; Obesity due to excess calories with serious comorbidity, unspecified classification E66.09 ; Insulin resistance E88.819 and Generalized anxiety disorder F41.1 [facility]. [address] [place] [address] [id number] 04/11/2024 Juan Manuel Johnston Body mass index [BMI ] 40.0-44.9, adult Z68.41 ; Obesity, unspecified E66.9 ; Dietary counseling and surveillance Z71.3 ; Vitamin D deficiency, unspecified E55.9 ; Obesity due to excess calories with serious comorbidity, unspecified classification E66.09 ; Insulin resistance E88.819 and Generalized anxiety disorder F41.1 [facility]. [address] [place] [address] [id number] 05/16/2024 Juan Manuel Johnston Body mass index [BMI ] 40.0-44.9, adult Z68.41 ; Obesity, unspecified E66.9 ; Dietary counseling and surveillance Z71.3 ; Vitamin D deficiency, unspecified E55.9 ; Obesity due to excess calories with serious comorbidity, unspecified classification E66.09 ; Insulin resistance E88.819 and Generalized anxiety disorder F41.1 [facility]. [address] [place] [id number] 06/11/2024 Juan Manuel Johnston Body mass index [BMI ] 40.0-44.9, adult Z68.41 ; Obesity, unspecified E66.9 ; Dietary counseling and surveillance Z71.3 ; Vitamin D deficiency, unspecified E55.9 ; Obesity due to excess calories with serious comorbidity, unspecified classification E66.09 ; Insulin resistance E88.819 and Generalized anxiety disorder F41.1 [facility]. [address] [place] [id number] 07/09/2024 Juan Manuel Johnston Body mass index [BMI ] 40.0-44.9, adult Z68.41 ; Obesity, unspecified E66.9 ; Dietary counseling and surveillance Z71.3 ; Vitamin D deficiency, unspecified E55.9 ; Obesity due to excess calories with serious comorbidity, unspecified classification E66.09 ; Insulin resistance E88.819 and Generalized anxiety disorder F41.1 [facility] [employer]. [address] [place] [id number] 08/13/2024 Juan Manuel Johnston Body mass index [...] Treatment Notes Treatment Clinical Notes Section Notes 01/18/2024 Body mass index [BMI] 40.0-44.9, adult (ICD-10 - Z68.41) 02/15/2024 Body mass index [BMI] 40.0-44.9, adult (ICD-10 - Z68.41) 03/11/2024 Body mass index [BMI] 40.0-44.9, adult (ICD-10 - Z68.41) 04/11/2024 Body mass index [BMI] 40.0-44.9, adult (ICD-10 - Z68.41) 05/16/2024 Body mass index [BMI] 40.0-44.9, adult (ICD-10 - Z68.41) 06/11/2024 Body mass index [BMI] 40.0-44.9, adult (ICD-10 - Z68.41) 07/09/2024 Body mass index [BMI] 40.0-44.9, adult (ICD-10 - Z68.41) 08/13/2024 Body mass index [BMI] 40.0-44.9, adult (ICD-10 - Z68.41) 08/13/2024 Obesity, unspecified (ICD-10 - E66.9) 07/09/2024 Obesity, unspecified (ICD-10 - E66.9) 05/16/2024 Obesity, unspecified (ICD-10 - E66.9) 06/11/2024 Obesity, unspecified (ICD-10 - E66.9) 04/11/2024 Obesity, unspecified (ICD-10 - E66.9) 03/11/2024 Obesity, unspecified (ICD-10 - E66.9) 01/18/2024 Obesity, unspecified (ICD-10 - E66.9) 02/15/2024 Obesity, unspecified (ICD-10 - E66.9) 01/18/2024 Dietary counseling and surveillance (ICD-10 - Z71.3) 02/15/2024 Dietary counseling and surveillance (ICD-10 - Z71.3) 03/11/2024 Dietary counseling and surveillance (ICD-10 - Z71.3) 04/11/2024 Dietary counseling and surveillance (ICD-10 - Z71.3) 05/16/2024 Dietary counseling and surveillance (ICD-10 - Z71.3) 06/11/2024 Dietary counseling and surveillance (ICD-10 - Z71.3) 07/09/2024 Dietary counseling and surveillance (ICD-10 - Z71.3) 08/13/2024 Dietary counseling and surveillance (ICD-10 - Z71.3) 08/13/2024 Vitamin D deficiency, unspecified (ICD-10 - E55.9) 07/09/2024 Vitamin D deficiency, unspecified (ICD-10 - E55.9) 06/11/2024 Vitamin D deficiency, unspecified (ICD-10 - E55.9) 05/16/2024 Vitamin D deficiency, unspecified (ICD-10 - E55.9) 04/11/2024 Vitamin D deficiency, unspecified (ICD-10 - E55.9) 03/11/2024 Vitamin D deficiency, unspecified (ICD-10 - E55.9) 01/18/2024 Vitamin D deficiency, unspecified (ICD-10 - E55.9) 02/15/2024 Vitamin D deficiency, unspecified (ICD-10 - E55.9) 01/18/2024 Obesity due to excess calories with serious comorbidity, unspecified classification (ICD-10 - E66.09) 02/15/2024 Obesity due to excess calories with serious comorbidity, unspecified classification (ICD-10 - E66.09) 03/11/2024 Obesity due to excess calories with serious comorbidity, unspecified classification (ICD-10 - E66.09) 04/11/2024 Obesity due to excess calories with serious comorbidity, unspecified classification (ICD-10 - E66.09) 05/16/2024 Obesity due to excess calories with serious comorbidity, unspecified classification (ICD-10 - E66.09) 06/11/2024 Obesity due to excess calories with serious comorbidity, unspecified classification (ICD-10 - E66.09) 07/09/2024 Obesity due to excess calories with serious comorbidity, unspecified classification (ICD-10 - E66.09) 08/13/2024 Obesity due to excess calories with serious comorbidity, unspecified classification (ICD-10 - E66.09) 08/13/2024 Insulin resistance (ICD-10 - E88.819) 07/09/2024 Insulin resistance (ICD-10 - E88.819) 06/11/2024 Insulin resistance (ICD-10 - E88.819) 05/16/2024 Insulin resistance (ICD-10 - E88.819) 04/11/2024 Insulin resistance (ICD-10 - E88.819) 03/11/2024 Insulin resistance (ICD-10 - E88.819) 02/15/2024 Insulin resistance (ICD-10 - E88.819) 01/18/2024 Insulin resistance (ICD-10 - E88.819) 01/18/2024 Generalized anxiety disorder (ICD-10 - F41.1) 02/15/2024 Generalized anxiety disorder (ICD-10 - F41.1) 03/11/2024 Generalized anxiety disorder (ICD-10 - F41.1) 04/11/2024 Generalized anxiety disorder (ICD-10 - F41.1) 05/16/2024 Generalized anxiety disorder (ICD-10 - F41.1) 06/11/2024 Generalized anxiety disorder (ICD-10 - F41.1) 07/09/2024 Generalized anxiety disorder (ICD-10 - F41.1) 08/13/2024 Generalized anxiety disorder (ICD-10 - F41.1) Plan Of Treatment No Information Insurance Providers Payer Name Payer Address Payer Phone Subscriber Number Group Number Insured Name Patient Relationship to Insured Coverage Start Date Coverage End Date [facility] [address] [place], [place] [id number] Rosa Dubois Self - patient is the insured
[2024-12-29 15:45] VITALS: BP 146/92; PULSE 58; RESP 16; TEMP 36.4; O2SAT 100
--- NOTE | 2024-12-29 15:51 | ED.ABDPAIN ---
HPI - Abdominal Pain General Chief Complaint: Abdominal Pain Stated Complaint: pain in stomach region/upper abdomen Time Seen by Provider: 12/29/24 15:40 patient presents to the [facility] with complaints of upper abdominal / epigastric pain that began a little less than 1 hour ago. Patient noted never had pain like this before reports history of heartburn on occasion but this is more upper chest burning sensation and very rarely. Patient does report she is currently just found out and believes to be about 6 weeks along. Reports this is her 2nd did not have any problems with acid reflux or abdominal pain at that time. Patient denies any significant medical history denies chest pain, palpitations, dizziness, shortness of breath. Patient reports did attempt Tums as soon as pain started which did not give any relief. Patient reports having pancakes with blue very syrup and sausage this morning for breakfast but no other food since then. Related Data Home Medications ?Medication ?Instructions ?Recorded ?Confirmed ?Last Taken ?Type No Home Medications 12/29/24 12/29/24 Unknown History Allergies Allergy/AdvReac Type Severity Reaction Status Date / Time No Known Allergies Allergy Verified 12/29/24 15:44 Review of Systems Constitutional: Constitutional: Reports as per HPI, Denies chills, Denies fatigue, Denies fever(s) and Denies weakness Eyes: Eyes: Reports no additional eye complaints ENT: Reports system reviewed and no additional complaints, except as documented Cardiovascular: Cardiovascular: Reports as per HPI, Reports chest pain ( Epigastric), Denies rapid heart rate, Denies radiating jaw, neck or arm pain and Denies slow heart rate Respiratory: Respiratory: Reports as per HPI, Denies chest congestion, Denies cough, Denies dyspnea and Denies wheezing Gastrointestinal: Gastrointestinal: Reports as per HPI, Reports abdominal pain ( epigastric), Denies bloating, Denies constipation, Denies heartburn, Denies diarrhea, Denies nausea and Denies vomiting Genitourinary: Genitourinary: Reports as per HPI, Denies abnormal vaginal bleeding, Denies hematuria, Denies nocturia, Denies dysuria, Denies pelvic pain and Denies vaginal discharge Musculoskeletal: Musculoskeletal: Reports no additional musculoskeletal complaints Neurologic: Reports as per HPI, Denies vertigo, Denies dizziness, Denies syncope and Denies weakness Psychiatric: Psychiatric: Reports no additional psychiatric complaints Endocrine: Endocrine: Reports no additional endocrine complaints Hematologic/Lymphatic: Hematologic/Lymphatic: Reports no additional hematologic/lymphatic complaints Allergic/Immunologic: Allergic/Immunologic: Reports no additional allergic/immunologic complaints [facility] Past Medical History Medical History Dislocation, patella closed Plantar fasciitis, bilateral 2013 Surgical History Surgical History (normal spontaneous vaginal delivery) (~06/2021) [place] teeth extracted 2012 & 2014 History of foot surgery b/l planter 2013 Family History Family History Father Hypertension Mother Hypertension Grandparent Hypertension Diabetes mellitus Father Hypertension Mother Hypertension Social History Social History Smoking packs per day: 0.5 Smoking cigarettes per day: 10.0 Years smoked: 15 Smoking pack-years: 7.50 Smoking status: Current every day smoker Tobacco type: cigarettes Second hand tobacco smoke exposure: Yes Alcohol intake: current Alcohol use details: 1 beer consumed every other week Substance use: never Substance use type: does not use Lack of Transportation: No Lack of Food: Never True Current Housing: I Have Housing Concerned About Future Housing: No Difficulty Paying Gas/Electric Bills: No Difficulty Paying for Meds: No Currently Unemployed: No Education: High School Diploma/GED Difficulty w/ Childcare or Family Care: No Gender identity (if verbalized by the patient): Female Spiritual care concerns: No Exam Const: General: healthy appearing and no acute distress Nutritional Appearance: well nourished Orientation/consciousness: patient oriented x3 Limitations: no limitations Neck: Neck: normal visual inspection and no lymphadenopathy Chest: Chest palpation & inspection: normal inspection of the chest, abnormal inspection of the chest, no tenderness and Pacemaker present Resp: Effort & Inspection: normal respiratory effort Auscultation: clear to auscultation bilaterally Cardio: Rate: regular rate Rhythm: regular rhythm GI: Inspection: non-distended GI Palp: Yes Soft to palpation, Yes Tenderness to palpation present (GI) ( epigastric), No Guarding due to palpation present (GI), No Rigid due to palpation, No Hernia present and No Rebound tenderness present Auscultation: normal bowel sounds Other: Mendez sign negative, Back/Spine/Pelvis: Back: no CVA tenderness Skin: General skin exam: normal color Rashes: no rashes Wounds: no wounds Neuro: General: patient oriented x3 Speech: normal speech Gait exam (Neuro): Normal gait present Extrem: General: normal to inspection Psych: Mental Status: mental status grossly normal Affect: Anxious affect present Attitude: cooperative Course Course Level of Care: Express Care Visit Vital Signs Vital signs: Vital Signs Temperature 97.5 F L 12/29/24 15:45 Pulse Rate 58 L 12/29/24 15:45 Respiratory Rate 16 12/29/24 15:45 Blood Pressure 146/92 H 12/29/24 15:45 Pulse Oximetry 100 12/29/24 15:45 Oxygen Delivery Room Air 12/29/24 15:45 Temperature 97.5 F L 12/29/24 15:45 Pulse Rate 58 L 12/29/24 15:45 Respiratory Rate 16 12/29/24 15:45 Blood Pressure 146/92 H 12/29/24 15:45 Pulse Oximetry 100 12/29/24 15:45 Oxygen Delivery Room Air 12/29/24 15:45 MDM - Abdominal Pain MDM Narrative Medical decision making narrative: given overall symptoms an area of pain concern for Peptic ulcer verses gastritis. GI cocktail given in clinic. Some improvement after GI cocktail given. Educated patient on using Maalox, Tums, and Pepcid at home given the area of pain this is likely gastritis. Spoke with patient about overall worsened nature to be evaluated in the emergency room. The patient was evaluated by myself in the express care. History is obtained from patient who is an independent historian and physical exam was performed. Available medical records were reviewed at this time. Exam findings show no acute concerns or changes; patient is non-toxic appearing and is in no distress. Patient is appropriate for outpatient treatment and follow-up. I have evaluated and discussed social determinants of health with the patient that could potentially impact subsequent diagnosis and treatment plans. Differential diagnosis and treatment plan were discussed with the patient. Patient agrees with discussion and after shared medical decision making agrees with plan of care. All questions were answered to the patient's satisfaction. Differential Diagnosis Differential diagnosis: Likely abdominal pain, constipation, gastroenteritis and other ( Cholecystitis, cholelithiasis, gastritis, peptic ulcer) Medical Records Attestation: I reviewed the patient's medical records. Discharge Plan Discharge Clinical Impression: Acute upper abdominal pain Patient Disposition: Home Condition: Stable Instructions: Antibiotic Form, Gastritis (ED), Diet for Stomach Ulcers and Gastritis (ED), Abdominal Pain in (ED) Additional Instructions: Given the location and nature of your pain this is likely gastritis/GERD/ stomach ulcer. You may use [id number] Maalox and Tums as needed, use these as directed on packaging you may also take Pepcid 20 mg every 6 hours as needed for symptoms. You cannot take omeprazole/ Prilosec, pantoprazole, Nexium/esomeprazole while . If you notice any increased symptoms, new symptoms like chest pain, palpitations, dizziness go to the emergency room for further evaluation. Patient Language: Serbian Prescriptions: No Action No Home Medications Follow-up/Referrals: Rosy Edwards MD [Primary Care Provider, Family Practice] Time of Disposition: 16:26
[2024-12-29] MEDS: MAG HYDROX/AL HYDROX/SIMETH 30 ML UDC PO (16:11)
[2024-12-29] MEDS: LIDOCAINE 2% VISC SOLN 15 ML UDC PO (16:11)
== END 2024-12-29 16:29 | disposition home or self-care (01) ==
PROVIDERS: Emergency Provider Nurse Practitioner Family; PCP Family Medicine
DX: O99.891 Other specified diseases and conditions complicating pregnancy (principal); R10.13 Epigastric pain; Z3A.00 Weeks of gestation of pregnancy not specified; O99.331 Smoking (tobacco) complicating pregnancy, first trimester; F17.210 Nicotine dependence, cigarettes, uncomplicated
CPT/HCPCS: 99213; A9270; G0463

== ENCOUNTER 2025-01-03 15:58 | Outpatient (CLI) | payer BC, SELFPAY ==
--- OUTSIDE RECORDS SUMMARY | 2024-05-16 03:30 | XMS_ITS ---
Author Organization [facility] [employer] Address [address] [facility] [address] [place], [place] [address] Care Team Providers Care It Project Coordinator Name Role Phone Juan Manuel Johnston Unavailable [phone] REASON FOR VISIT Patient is seen for Evaluation and Weight Management.had multiple weight loss attempts with different diet plans including but not limited to Keto, Atkins, Other low carb diet, Attempted excercise also as a way to lose weight. Patient report most had initial weight loss but gained weight back then some. Discussed medical management with continued diet and exercise. plan. will add medications to assist and augment the patient weight loss plan. discussed contraindications and side effects to medications, pateint denied hx of Medullary thyroid cancer, pancreatitis or MENII. discussed risks and benefits of meds. patient agreed to proceed., discussed options of medications including (Wegovy Semag lutide,---Mounjaro-/Tridepatide --ZepBound---Trulicity, Qsymia and Contrave as well as phentermine.), Goal Weight is, Discussed Calorie and protien intake, discussed exercise and physical activity., Discussed Sleep and Anxiety management as ways to improve healthy weight and lifestyle., Patient currently ____Taking. Not taking Vitamin D and Multivitamins., weight check f/u weekly via phone, secure message or secure email., weight loss visit with physician monthly. Medications Medication SIG (Take, Route, Frequency, Duration) Notes Start Date End Date Status metFORMIN HCl ER 500 MG 1 tablet with ev ening meal Orally Once a day; Duration: 30 days 12/19/2023 Active Semaglutide (1 MG/DOSE) 4 MG/3ML Semaglutide / Cyanocobalamin Injection: 5/0.5 mg/mL 1 mL Vial 0.75 mg weekly Subcutaneous Weekly; Duration: 28 days 12/19/2023 06/13/2024 Active metFORMIN HCl ER 500 MG 1 tablet with ev ening meal Orally Once a day; Duration: 30 days 04/11/2024 Active metFORMIN HCl ER 500 MG 2 tablet with ev ening meal Orally Once a day; Duration: 30 day(s) 02/15/2024 Active Saxenda 18 MG/3ML Subcutaneous 11/12/2022 Active Vital Signs Height 67.00 in 05/16/2024 Weight 210 lbs 05/16/2024 BMI 32.89 kg/m2 05/16/2024 Height-cm 170.18 cm 05/16/2024 Weight-kg 95.26 kg 05/16/2024 Encounters Encounter Location Date Provider Diagnosis [address] [id number] 05/16/2024 Juan Manuel Johnston Body mass index [BMI ] 40.0-44.9, adult Z68.41 ; Obesity, unspecified E66.9 ; Dietary counseling and surveillance Z71.3 ; Vitamin D deficiency, unspecified E55.9 ; Obesity due to excess calories with serious comorbidity, unspecified classification E66.09 ; Insulin resistance E88.819 and Generalized anxiety disorder F41.1 Assessments Encounter Date Diagnosis (ICD Code) Assessment Notes Treatment Notes Treatment Clinical Notes Section Notes 05/16/2024 Body mass index [BMI] 40.0-44.9, adult (ICD-10 - Z68.41) 05/16/2024 Obesity, unspecified (ICD-10 - E66.9) 05/16/2024 Dietary counseling and surveillance (ICD-10 - Z71.3) 05/16/2024 Vitamin D deficiency, unspecified (ICD-10 - E55.9) 05/16/2024 Obesity due to excess calories with serious comorbidity, unspecified classification (ICD-10 - E66.09) 05/16/2024 Insulin resistance (ICD-10 - E88.819) 05/16/2024 Generalized anxiety disorder (ICD-10 - F41.1) Plan Of Treatment Medication Medication Name Sig Start Date Stop Date Notes Semaglutide (1 MG/DOSE) 4 MG/3ML Semaglutide / Cyanocobalamin Injection: 5/0.5 mg/mL 1 mL Vial 0.75 mg weekly Subcutaneous Weekly; Duration: 28 days 12/19/2023 06/13/2024 metFORMIN HCl ER 500 MG 2 tablet with ev ening meal Orally Once a day; Duration: 30 day(s) 02/15/2024 Progress Notes * Rosa DENNYDOB: [birth year] (34 yo F)Acc No.[id number]:05/16/2024 Patient: Rosa MARINO Provider: Harsh Johnston M.D :1990 A ge:34 Y S ex:Female Date:05/16/2024 Address:[address] [place], [place] [id number] Subjective: * Chief Complaints: * 1 . Patient is seen for Evaluation and Weight Management.had multiple weight loss attempts with different diet plans including but not limited to Keto, Atkins, Other low carb diet, Attempted excercise also as a way to lose weight. Patient report most had initial weight loss but gained weight back then some. Discussed medical management with continued diet and exercise. plan. will add medications to assist and augment the patient weight loss plan. discussed contraindications and side effects to medications, pateint denied hx of Medullary thyroid cancer, pancreatitis or MENII. discussed risks and benefits of meds. patient agreed to proceed.. 2. discussed options of medications including (Wegovy Semaglutide,---Mounjaro-/Tridepatide --ZepBound---Trulicity, Qsymia and Contrave as well as phentermine.). 3. Goal Weight is. 4. Discussed Calorie and protien intake. 5. Discussed exercise and physical activity.. 6. Discussed Sleep and Anxiety management as ways to improve healthy weight and lifestyle.. 7. Patient currently ____Taking. Not taking Vitamin D and Multivitamins.. 8. Weight check f/u weekly via phone, secure message or secure email.. 9. Weight loss visit with physician monthly.. * ROS: G eneral / Constitutional: Patient denies c hange in appetite, fever, weakness. ? A llergy / Immunology: Patient denies h tatyana, itching, rash. O phthalmologic: Patient denies b lurry vision, discharge, red eye(s). P atient complains of d ouble vision. E ndocrine: Patient denies c old intolerance, hair loss, irregular menses. F requent urination d enies. H air loss a dmits. H eat intolerance d enies. H ot flashes d enies. I rregular menses d enies. R espiratory: Patient denies c hronic cough, shortness of breath, sputum production. B reast: Patient denies b loody nipple discharge, breast pain, breast swelling. C ardiovascular: Patient denies c hest pain, chest pain with exertion, irregular heartbeat. G astrointestinal: Patient denies a bdominal pain, diarrhea, rectal bleeding.?Constipation a dmits. D ecreased appetite a dmits with medicine. D iarrhea d enies. H ematology: Patient denies e asy bleeding, easy bruising, recent transfusion. G ynecology: Patient denies a bnormal bleeding, hot flashes, pelvic pain. G enitourinary: Patient denies a bdominal pain / swelling, blood in the urine, frequent urination. M usculoskeletal: Patient denies a rthritis / arthralgia, joint stiffness, swollen joints. P eripheral Vascular: Patient denies b lanching of skin, cold extremities, decreased sensation in extremities. P odiatric: Patient denies a nkle pain, foot pain, sole pain. ? S kin: Patient denies b listering of skin, changing moles, skin lesion(s). N eurologic: Patient denies d izziness, gait abnormality, headache. P sychiatric: Patient denies d elusions, depressed mood, difficulty sleeping,. D ifficulty sleeping a dmits. E ating disorder a dmits. L oss of appetite?admits. * Medical History: * Medications: T aking Saxenda 18 MG/3ML Solution Pen-injector Subcutaneous , Taking metFORMIN HCl ER 500 MG Tablet Extended Release 24 Hour 1 tablet with evening meal Orally Once a day , Taking metFORMIN HCl ER 500 MG Tablet Extended Release 24 Hour 2 tablet with evening meal Orally Once a day , Taking metFORMIN HCl ER 500 MG Tablet Extended Release 24 Hour 1 tablet with evening meal Orally Once a day Objective: * Vitals: W t:210lbs, Wt-k.26 kg, Ht: 67.00 in, Ht-cm: 170.18 cm, BMI:32.89Index, Body Surface Area: 2.12. * Examination: G eneral Examination: General appearance: o bese alert, well-nourished and in no acute distress . Head: n ormocephalic, atraumatic . Eyes: p upils equal, round, reactive to light and accommodation extraocular movement intact (EOMI) . Neck / thyroid: n o masses and/or tenderness trachea midline neck is supple, with full range of motion and no cervical lymphadenopathy . Skin: w ith no suspicious skin lesions skin with rashes, good skin turgor and normal hair distribution . Lungs: n o apparent respiratory distress, no tachypnea.? Musculoskeletal: n o swelling, redness, warmth or tenderness of the elbow(s) with full range of motion . Neurologic: a lert and oriented nonfocal cooperative with exam gait normal . Psych: a lert and oriented x 3 cognitive function intact cooperative with exam maintains good eye contact with good judgement and insight . ? Assessment: * Assessment: 1. V itamin D deficiency, unspecified - E55.9 (Primary) 2 . B twan mass index [BMI] 40.0-44.9, adult - Z68.41 3 . O besity, unspecified - E66.9 ?4. D ietary counseling and surveillance - Z71.3 5 . O besity due to excess calories with serious comorbidity, unspecified classification - E66.09 6 . I nsulin resistance - E88.819 7 . G eneralized anxiety disorder - F41.1 ? Plan: * Treatment: 2. I nsulin resistance Refill metFORMIN HCl ER Tablet Extended Release 24 Hour, 500 MG, 2 tablet with evening meal, Orally, Once a day, 30 day(s), 60, Refills 0. * Billing Information: * Visit Code: * Procedure Codes: * Electronic signature of Alba Johnston MD on 01/03/2025 at 04:04 PM CDT Sign off status: Pending * Provider: Harsh Johnston M.D Date: 0 05/16/2024 Generated for Randall yao/Gareth/eTdiannasmitting on: 0 01/03/2025 04:04 PM CDT History and Physical Notes * Examination Category Sub-Category Detail Notes Category Not es General Examination General appearance: obese al ert, well-nourished and in no acute distress Head: normocephalic, atrau matic Eyes: pupils equal, round, reactive to light and accommodation extraocular movement intact (EOMI) Neck / thyroid: no masses and/or ten derness trachea midline neck is supple, with full range of motion and no cervical lymphadenopathy Lungs: no apparent respirat ory distress, no tachypnea Neurologic: alert and oriented n onfocal cooperative with exam gait normal Skin: with no suspicious s kin lesions skin with rashes, good skin turgor and normal hair distribution Musculoskeletal: no swelling, redness , warmth or tenderness of the elbow(s) with full range of motion Psych: alert and oriented x 3 cognitive function intact cooperative with exam maintains good eye contact with good judgement and insight
--- OUTSIDE RECORDS SUMMARY | 2024-06-11 03:15 | XMS_ITS ---
Author Organization [facility] Address [address] [facility] [address] [place], [place] [address] Care Team Providers Care Machine Gun Mechanic Name Role Phone Juan Manuel Johnston Unavailable [phone] REASON FOR VISIT Patient is seen for [...] Date Status metFORMIN HCl ER 500 MG 2 tablet with ev ening meal Orally Once a day; Duration: 30 day(s) 02/15/2024 Active Semaglutide (1 MG/DOSE) 4 MG/3ML Semaglutide / Cyanocobalamin Injection: 5/0.5 mg/mL 1 mL Vial 0.75 mg weekly x4 weeks then 20 units weeks 5 and 6 Subcutaneous Weekly; Duration: 28 days 12/19/2023 07/09/2024 Active metFORMIN HCl ER 500 MG 1 tablet with ev ening meal Orally Once a day; Duration: 30 days 04/11/2024 Active metFORMIN HCl ER 500 MG 1 tablet with ev ening meal Orally Once a day; Duration: 30 days 12/19/2023 Active Saxenda 18 MG/3ML Subcutaneous 11/12/2022 Active Vital Signs Height 67.00 in 06/11/2024 Weight 203 lbs 06/11/2024 BMI 31.79 kg/m2 06/11/2024 Height-cm 170.18 cm 06/11/2024 Weight-kg 92.08 kg 06/11/2024 Encounters Encounter Location Date Provider Diagnosis [address] [id number] 06/11/2024 Juan Manuel Johnston Body mass index [BMI ] 40.0-44.9, adult Z68.41 ; Obesity, unspecified E66.9 ; Dietary counseling and surveillance Z71.3 ; Vitamin D deficiency, unspecified E55.9 ; Obesity due to excess calories with serious comorbidity, unspecified classification E66.09 ; Insulin resistance E88.819 and Generalized anxiety disorder F41.1 Assessments Encounter Date Diagnosis (ICD Code) Assessment Notes Treatment Notes Treatment Clinical Notes Section Notes 06/11/2024 Body mass index [BMI] 40.0-44.9, adult (ICD-10 - Z68.41) 06/11/2024 Obesity, unspecified (ICD-10 - E66.9) 06/11/2024 Dietary counseling and surveillance (ICD-10 - Z71.3) 06/11/2024 Vitamin D deficiency, unspecified (ICD-10 - E55.9) 06/11/2024 Obesity due to excess calories with serious comorbidity, unspecified classification (ICD-10 - E66.09) 06/11/2024 Insulin resistance (ICD-10 - E88.819) 06/11/2024 Generalized anxiety disorder (ICD-10 - F41.1) Plan Of Treatment Medication Medication Name Sig Start Date Stop Date Notes metFORMIN HCl ER 500 MG 2 tablet with ev ening meal Orally Once a day; Duration: 30 day(s) 02/15/2024 Semaglutide (1 MG/DOSE) 4 MG/3ML Semaglutide / Cyanocobalamin Injection: 5/0.5 mg/mL 1 mL Vial 0.75 mg weekly x4 weeks then 20 units weeks 5 and 6 Subcutaneous Weekly; Duration: 28 days 12/19/2023 07/09/2024 Progress Notes * Rosa DENNYDOB: [birth year] (34 yo F)Acc No.[id number]:06/11/2024 Patient: Rosa MARINO Provider: Harsh Johnston M.D :1990 A ge:34 Y S ex:Female Date:06/11/2024 Address:[address] [place] [address] Subjective: * Chief Complaints: * 1 . [...] meal Orally Once a day , Taking Semaglutide (1 MG/DOSE) 4 MG/3ML Solution Pen-injector Semaglutide / Cyanocobalamin Injection: 5/0.5 mg/mL 1 mL Vial 0.75 mg weekly Subcutaneous Weekly , stop date 06/13/2024 Objective: * Vitals: W t:203lbs, Wt-k.08 kg, Ht: 67.00 in, Ht-cm: 170.18 cm, BMI:31.79Index, Body Surface Area: 2.08. * Examination: G eneral Examination: General appearance: [...] disorder - F41.1 ? Plan: * Treatment: * Billing Information: * Visit Code: * Procedure Codes: * Electronic signature of Alba Johnston MD on 01/03/2025 at 04:04 PM CDT Sign off status: Pending * Provider: Harsh Johnston M.D Date: 06/11/2024 Generated for Randall yao/Gareth/Maxim on: 0 01/03/2025 04:04 PM CDT History [...]
--- OUTSIDE RECORDS SUMMARY | 2024-07-09 03:15 | XMS_ITS ---
Author Organization [facility] Address [address] [facility] [address] [place], [place] [address] Care Team Providers Care Aquatics Assistant Department Head Name Role Phone Juan Manuel Johnston Unavailable [phone] REASON FOR VISIT Patient is seen for [...] a day; Duration: 30 days 04/11/2024 Active Semaglutide (1 MG/DOSE) 4 MG/3ML Semaglutide / Cyanocobalamin Injection: 5/0.5 mg/mL 1 mL Vial 1 mg weekly Subcutaneous Weekly; Duration: 28 days 12/19/2023 08/06/2024 Active metFORMIN HCl ER 500 MG 1 tablet with ev ening meal Orally Once a day; Duration: 30 days 12/19/2023 Active metFORMIN HCl ER 500 MG 2 tablet with ev ening meal Orally Once a day; Duration: 30 day(s) 02/15/2024 Active Phentermine HCl 37.5 MG 1 tablet 30 fidel jordy before meals Orally Once a day; Duration: 30 days 07/09/2024 08/08/2024 Active Saxenda 18 MG/3ML Subcutaneous 11/12/2022 Active metFORMIN HCl ER 500 MG 2 tablet with ev ening meal Orally Once a day; Duration: 90 days 07/09/2024 Active Vital Signs Height 67.00 in 07/09/2024 Weight 204 lbs 07/09/2024 BMI 31.95 kg/m2 07/09/2024 Height-cm 170.18 cm 07/09/2024 Weight-kg 92.53 kg 07/09/2024 Encounters Encounter Location Date Provider Diagnosis [address] [id number] 07/09/2024 Juan Manuel Johnston Body mass index [BMI ] 40.0-44.9, adult Z68.41 ; Obesity, unspecified E66.9 ; Dietary counseling and surveillance Z71.3 ; Vitamin D deficiency, unspecified E55.9 ; Obesity due to excess calories with serious comorbidity, unspecified classification E66.09 ; Insulin resistance E88.819 and Generalized anxiety disorder F41.1 Assessments Encounter Date Diagnosis (ICD Code) Assessment Notes Treatment Notes Treatment Clinical Notes Section Notes 07/09/2024 Body mass index [BMI] 40.0-44.9, adult (ICD-10 - Z68.41) 07/09/2024 Obesity, unspecified (ICD-10 - E66.9) 07/09/2024 Dietary counseling and surveillance (ICD-10 - Z71.3) 07/09/2024 Vitamin D deficiency, unspecified (ICD-10 - E55.9) 07/09/2024 Obesity due to excess calories with serious comorbidity, unspecified classification (ICD-10 - E66.09) 07/09/2024 Insulin resistance (ICD-10 - E88.819) 07/09/2024 Generalized anxiety disorder (ICD-10 - F41.1) Plan Of Treatment Medication Medication Name Sig Start Date Stop Date Notes Semaglutide (1 MG/DOSE) 4 MG/3ML Semaglutide / Cyanocobalamin Injection: 5/0.5 mg/mL 1 mL Vial 1 mg weekly Subcutaneous Weekly; Duration: 28 days 12/19/2023 08/06/2024 Phentermine HCl 37.5 MG 1 tablet 30 fidel jordy before meals Orally Once a day; Duration: 30 days 07/09/2024 08/08/2024 metFORMIN HCl ER 500 MG 2 tablet with ev ening meal Orally Once a day; Duration: 90 days 07/09/2024 Progress Notes * Rosa DENNYDOB: [birth year] (34 yo F)Acc No.[id number]:07/09/2024 Patient: Rosa MARINO Provider: Harsh Johnston M.D :1990 A ge:34 Y S ex:Female Date:07/09/2024 Address:[address] [place] [address] Subjective: * Chief Complaints: * 1 . [...] appetite?admits. * Medical History: * Medications: T nany Saxenda 18 MG/3ML Solution Pen-injector Subcutaneous , [...] 20 units weeks 5 and 6 Subcutaneous Weekly , stop date 07/09/2024, Taking metFORMIN HCl ER 500 MG Tablet Extended Release 24 Hour 2 tablet with evening meal Orally Once a day Objective: * Vitals: W t:204lbs, Wt-k.53 kg, Ht: 67.00 in, Ht-cm: 170.18 cm, BMI:31.95Index, Body Surface Area: 2.09. * Examination: G eneral Examination: General appearance: [...] Plan: * Treatment: 2. I nsulin resistance Start metFORMIN HCl ER Tablet Extended Release 24 Hour, 500 MG, 2 tablet with evening meal, Orally, Once a day, 90 days, 180 Tablet, Refills 0. * Billing Information: * Visit Code: * Procedure Codes: * Electronic signature of Alba Johnston MD on 01/03/2025 at 04:04 PM CDT Sign off status: Pending * Provider: Harsh Johnston M.D Date: 07/09/2024 Generated for Randall yao/Gareth/eTransmitting on: 0 01/03/2025 04:04 PM CDT History [...]
--- OUTSIDE RECORDS SUMMARY | 2024-08-13 05:00 | XMS_ITS ---
Author Organization [facility] Address [address] [facility] [address] [place], [place] [address] Care Team Providers Care Customer Account Technician Name Role Phone Juan Manuel Johnston Unavailable [phone] REASON FOR VISIT Patient is seen for [...] a day; Duration: 30 day(s) 02/15/2024 Active metFORMIN HCl ER 500 MG 2 tablet with ev ening meal Orally Once a day; Duration: 90 days 07/09/2024 Active Saxenda 18 MG/3ML Subcutaneous 11/12/2022 Active Semaglutide (1 MG/DOSE) 4 MG/3ML Semaglutide / Cyanocobalamin 5/0.5 mg/mL 2.5 mL Vial start with 1.5 mg weekly Subcutaneous Weekly; Duration: 28 days 08/13/2024 09/10/2024 Active metFORMIN HCl ER 500 MG 1 tablet with ev ening meal Orally Once a day; Duration: 30 days 12/19/2023 Active Phentermine HCl 37.5 MG 1 tablet 30 fidel jordy before meals Orally Once a day; Duration: 30 days 08/13/2024 09/12/2024 Active metFORMIN HCl ER 500 MG 1 tablet with ev ening meal Orally Once a day; Duration: 30 days 04/11/2024 Active Vital Signs Height 67.00 in 08/13/2024 Weight 202 lbs 08/13/2024 BMI 31.63 kg/m2 08/13/2024 Height-cm 170.18 cm 08/13/2024 Weight-kg 91.63 kg 08/13/2024 Encounters Encounter Location Date Provider Diagnosis [address] [id number] 08/13/2024 Juan Manuel Johnston Body mass index [BMI ] 40.0-44.9, adult Z68.41 ; Obesity, unspecified E66.9 ; Dietary counseling and surveillance Z71.3 ; Vitamin D deficiency, unspecified E55.9 ; Obesity due to excess calories with serious comorbidity, unspecified classification E66.09 ; Insulin resistance E88.819 and Generalized anxiety disorder F41.1 Assessments Encounter Date Diagnosis (ICD Code) Assessment Notes Treatment Notes Treatment Clinical Notes Section Notes 08/13/2024 Body mass index [BMI] 40.0-44.9, adult (ICD-10 - Z68.41) 08/13/2024 Obesity, unspecified (ICD-10 - E66.9) 08/13/2024 Dietary counseling and surveillance (ICD-10 - Z71.3) 08/13/2024 Vitamin D deficiency, unspecified (ICD-10 - E55.9) 08/13/2024 Obesity due to excess calories with serious comorbidity, unspecified classification (ICD-10 - E66.09) 08/13/2024 Insulin resistance (ICD-10 - E88.819) 08/13/2024 Generalized anxiety disorder (ICD-10 - F41.1) Plan Of Treatment Medication Medication Name Sig Start Date Stop Date Notes Semaglutide (1 MG/DOSE) 4 MG/3ML Semaglutide / Cyanocobalamin 5/0.5 mg/mL 2.5 mL Vial start with 1.5 mg weekly Subcutaneous Weekly; Duration: 28 days 08/13/2024 09/10/2024 Phentermine HCl 37.5 MG 1 tablet 30 fidel jordy before meals Orally Once a day; Duration: 30 days 08/13/2024 09/12/2024 Progress Notes * Rosa DUBOISDOB: [birth year] (34 yo F)Acc No.[id number]:08/13/2024 Patient: Rosa MARINO Provider: Harsh Johnston M.D :1990 A ge:34 Y S ex:Female Date:08/13/2024 Address:[address] [place] [address] Subjective: * Chief Complaints: * 1 . [...] appetite?admits. * Medical History: * Medications: T lorenag Saxenda 18 MG/3ML Solution Pen-injector Subcutaneous , [...] Once a day Objective: * Vitals: W t:202lbs, Wt-k.63 kg, Ht: 67.00 in, Ht-cm: 170.18 cm, BMI:31.63Index, Body Surface Area: 2.08. * Examination: G [...] * Provider: Harsh Johnston M.D Date: 0 08/13/2024 Generated for Printi ng/Faxing/eTransmitting on: 0 01/03/2025 04:04 PM CDT History [...]
--- OUTSIDE RECORDS SUMMARY | 2024-09-12 04:30 | XMS_ITS ---
Author Organization [facility] Address [address] [place] [id number] Care Team Providers Care Formwork Carpenter Name Role Phone Kimireese Juan Manuel Bolden [phone] Encounters Encounter Location Date Provider Diagnosis [address] [id number] 09/12/2024 Juan Manuel Johnston Plan Of Treatment No Information Progress Notes * ALINELOCRosaDOB: [birth year] (34 yo F)Acc No.[id number]:09/12/2024 Patient: Rosa MARINO Provider: Harsh Johnston M.D :1990 A ge:34 Y S ex:Female Date:09/12/2024 Address:[address] [place], [place] [id number] Subjective: * Chief Complaints: * * Medical History: Objective: * Vitals: Assessment: Plan: * Treatment: * Billing Information: * Visit Code: * Procedure Codes: * Electronic signature of Alba Johnston MD on 01/03/2025 at 04:06 PM CDT Sign off status: Pending * Provider: Harsh Johnston M.D Date: 09/12/2024 Generated for Randall yao/Gareth/eTransmitting on: 0 01/03/2025 04:06 PM CDT
--- NOTE | ~2025-01-03 | US_ITS ---
EXAMINATION: US OB <=14 wk fetus w TV DATE: 01/03/2025 17:34 INDICATION: Threatened TECHNIQUE: Real-time transabdominal and transvaginal obstetric ultrasound. FINDINGS: No prior studies for comparison. The uterus measures 9.2 x 4.9 x 7.2 cm. There is an intrauterine gestational sac, with pole identified. The crown rump length measures 0.8 cm, which correlates with a estimated gestational age of 6 weeks 5 days. heart tones are identified measuring 128 BPM. Moderate-sized subchorionic hemorrhage. Right ovary unremarkable. Left ovary contains a complicated 3.4 cm cyst with septations, likely corpus luteal cyst. IMPRESSION: 1. SL IUP with an EGA of 6 weeks, 5 days. 2: Moderate size subchorionic hemorrhage. 3: Complicated 3.4 cm left ovarian cyst, likely corpus luteal cyst. Reviewed, dictated and finalized at location O.
--- OUTSIDE RECORDS SUMMARY | 2025-01-03 16:04 | XMS_ITS | Patient Health Record ---
Author Organization [facility] [address] Address [address] [place], [place] [id number] Care Team Providers Care Broaching Machine Set Up Operator Name Role Phone Juan Manuel Johnston [phone] Reason For Referral No Information Medications Medication [...] Problem Status W/U Status Risk Notes Problem Obesity (465288513) Obesity, unspecified (E66.9) Active confirmed Problem Generalized anxiety disorder (87940212) Generalized anxiety disorder (F41.1) Active confirmed Problem Body mass index 40+ - severely obese (125821558) Body mass index [BMI] 40.0-44.9, adult (Z68.41) Active confirmed Problem Obesity (814793562) Obesity due to excess calories with serious comorbidity, unspecified classification (E66.09) Active confirmed Problem Insulin resistance (247994070) Insulin resistance (E88.819) Active confirmed Problem Vitamin D deficiency (72276423) Vitamin D deficiency, unspecified (E55.9) 3 Active confirmed Vital Signs Height-cm 170.18 cm 08/13/2024 Weight-kg 91.63 kg 08/13/2024 Height 67.00 in 08/13/2024 Weight 202 lbs 08/13/2024 BMI 31.63 kg/m2 08/13/2024 Encounters Encounter Location Date Provider Diagnosis [facility]. [address] [place] [address] [id number] 01/18/2024 Juan Manuel Boldenreese Body mass index [BMI ] 40.0-44.9, adult Z68.41 ; Obesity, unspecified E66.9 ; Dietary counseling and surveillance Z71.3 ; Vitamin D deficiency, unspecified E55.9 ; Obesity due to excess calories with serious comorbidity, unspecified classification E66.09 ; Insulin resistance E88.819 and Generalized anxiety disorder F41.1 [facility]. [address] [place] [address] [id number] 02/15/2024 Juan Manuel Boldenlucyer Body mass index [BMI ] 40.0-44.9, adult Z68.41 ; Obesity, unspecified E66.9 ; Dietary counseling and surveillance Z71.3 ; Vitamin D deficiency, unspecified E55.9 ; Obesity due to excess calories with serious comorbidity, unspecified classification E66.09 ; Insulin resistance E88.819 and Generalized anxiety disorder F41.1 [facility]. [address] [place] [address] [id number] 03/11/2024 Ridsaud Boldenlucyer Body mass index [BMI ] 40.0-44.9, adult Z68.41 ; Obesity, unspecified E66.9 ; Dietary counseling and surveillance Z71.3 ; Vitamin D deficiency, unspecified E55.9 ; Obesity due to excess calories with serious comorbidity, unspecified classification E66.09 ; Insulin resistance E88.819 and Generalized anxiety disorder F41.1 [facility]. [address] [place] [address] [id number] 04/11/2024 Ridsaud Boldenlucyer Body mass index [BMI ] 40.0-44.9, adult Z68.41 ; Obesity, unspecified E66.9 ; Dietary counseling and surveillance Z71.3 ; Vitamin D deficiency, unspecified E55.9 ; Obesity due to excess calories with serious comorbidity, unspecified classification E66.09 ; Insulin resistance E88.819 and Generalized anxiety disorder F41.1 [facility]. [address] [place] [address] [id number] 05/16/2024 Juan Manuel Johnston Body mass index [BMI ] 40.0-44.9, adult Z68.41 ; Obesity, unspecified E66.9 ; Dietary counseling and surveillance Z71.3 ; Vitamin D deficiency, unspecified E55.9 ; Obesity due to excess calories with serious comorbidity, unspecified classification E66.09 ; Insulin resistance E88.819 and Generalized anxiety disorder F41.1 [facility]. [address] [place] [address] [id number] 06/11/2024 Juan Manuel Johnston Body mass index [BMI ] 40.0-44.9, adult Z68.41 ; Obesity, unspecified E66.9 ; Dietary counseling and surveillance Z71.3 ; Vitamin D deficiency, unspecified E55.9 ; Obesity due to excess calories with serious comorbidity, unspecified classification E66.09 ; Insulin resistance E88.819 and Generalized anxiety disorder F41.1 [facility]. [address] [place] [address] [id number] 07/09/2024 Juan Manuel Johnston Body mass index [BMI ] 40.0-44.9, adult Z68.41 ; Obesity, unspecified E66.9 ; Dietary counseling and surveillance Z71.3 ; Vitamin D deficiency, unspecified E55.9 ; Obesity due to excess calories with serious comorbidity, unspecified classification E66.09 ; Insulin resistance E88.819 and Generalized anxiety disorder F41.1 [facility]. [address] [place] [address] [id number] 08/13/2024 Juan Manuel Johnston Body mass index [...] Insured Coverage Start Date Coverage End Date [facility] [address] [place], [place] [id number] Rosa Dubois Self - patient is the insured
--- OUTSIDE RECORDS SUMMARY | 2025-01-03 16:04 | XMS_ITS | Clinical Summary ---
Author Organization [facility] Address [address] [place] [address] Care Team Providers Care Audograph Operator Name Role Phone Unavailable Primary Care Provider Unavailabl e Source Comments [facility],non-owned Affiliates and Associated Physician Practices is amultiple site organization consisting of ambulatory clinics and hospital sitesin [place], [place], [place] and [place]. This disclosure is being madepursuant to the Care Everywhere program and may not contain all information available regarding this patient. Last updated 18.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
== END 2025-01-03 15:59 | disposition home or self-care (01) ==
PROVIDERS: PCP Family Medicine; Visit Provider Obstetrics & Gynecology
DX: O20.0 Threatened abortion (principal); N83.202 Unspecified ovarian cyst, left side; Z3A.01 Less than 8 weeks gestation of pregnancy
CPT/HCPCS: 76801; 76817